=== PATIENT | male | born 1980 | race Caucasian/White ===

== ENCOUNTER 2017-02-13 09:39 | Inpatient (IN) | payer BC ==
[2017-02-13] MEDS ORDERED: Ondansetron HCl/PF 8 MG in Sodium Chloride 0.9% 50 ML IVPB PRN (10:23)
[2017-02-13] MEDS ORDERED: Dexamethasone 20 MG in Sodium Chloride 0.9% 50 ML IVPB SCH (10:30)
[2017-02-13] MEDS ORDERED: Famotidine/PF 20 mg/2ml Vial SLOW IVP SCH (10:30)
[2017-02-13] MEDS ORDERED: Acetaminophen 325 MG TAB PO SCH (10:30)
[2017-02-13] MEDS ORDERED: Palonosetron HCl 0.25 MG in Sodium Chloride 0.9% 50 ML IVPB SCH (10:30)
[2017-02-13] MEDS ORDERED: SODIUM CHLORIDE 0.9% IVPB SCH ×3 (11:00→11:30)
[2017-02-13] MEDS ORDERED: diphenhydrAMINE 50 MG in Sodium Chloride 0.9% 100 ML IVPB SCH (11:00)
[2017-02-13] MEDS ORDERED: RITUXIMAB IVPB SCH ×2 (11:00→11:15)
[2017-02-13] MEDS ORDERED: predniSONE 50 MG TAB PO SCH (11:30)
[2017-02-13] MEDS ORDERED: VINCRISTINE SULFATE IVPB SCH (11:30)
[2017-02-13] MEDS ORDERED: DOXORUBICIN IVPB SCH (11:30)
--- NOTE | 2017-02-13 13:13 | RAD ---
TWO VIEWS OF THE CHEST 02/13/2017 COMPARISON: 01/11/2009 HISTORY: Evaluate chest prior to chemotherapy treatment. FINDINGS: There is increased soft tissue density in the right paratracheal region, measuring up to 2.4 cm in t ransverse dimension. Question right paratracheal lymphadenopathy. There is increased density in th e right hilar region as well, which may signify underlying right hilar adenopathy. No pneumothorax o r pleural effusion. Mild elevation of right hemidiaphragm noted. No focal consolidation or alveola r edema. Soft tissue density noted in the left perihilar region and left paratracheal region, also concerning for adenopathy. IMPRESSION: Increased density in the hilar and paratracheal regions, suspicious for lymphadenopathy. No lobar c onsolidation or alveolar edema. This could be better assessed via chest CT. Code T. POS: [facility]
[2017-02-13] MEDS ORDERED: ALPRAZolam 0.25 MG TAB PO PRN (14:57)
--- NOTE | 2017-02-13 15:40 | HP ---
PRIMARY CARE PHYSICIAN: Dr. Isabella Mclean. CHIEF COMPLAINT: Large cell lymphoma. HISTORY OF PRESENT ILLNESS: The patient is a 36-year-old patient of Dr. Isabella Mclean. The patient has been admitted to begin a second round of chemotherapy for large cell lymphoma. [facility] and has been directly admitted by Dr. Mclean to continue therapy here. Patient denies any review of systems upon my interview. REVIEW OF SYSTEMS: The following complete review of systems was negative, unless otherwise mentioned in the HPI or belo w: Constitutional: Weight loss or gain, sense of well-being, ability to conduct usual activities, exer cise tolerance. Skin/Breast: Rash, itching, changes in hair growth or loss, nail changes, breast lumps, tenderness, swelling, nipple discharge. Eyes: Vision, double vision, tearing, blind spots, pain. ENT/Mouth: Headaches (location, time of onset, duration, precipitating factors), vertigo, lighthead edness, injury. Vision, double vision, tearing, blind spots, pain, nose bleeding, colds, obstruction , discharge, dental difficulties, gingival bleeding, dentures, neck stiffness, pain, tenderness, mas ses in thyroid or other areas. Cardiovascular: Precordial pain, substernal distress, palpitations, syncope, dyspnea on exertion, o rthopnea, nocturnal paroxysmal dyspnea, edema, cyanosis, hypertension, heart murmurs, varicosities, phlebitis, claudication. Respiratory: Pain, shortness of breath, wheezing, stridor, cough, hemoptysis, fever or night sweats Gastrointestinal: Poor appetite, dysphagia, indigestion, abdominal pain, heartburn, eructation, [place], vomiting, hematemesis, jaundice, constipation, or diarrhea, abnormal stools (althea-colored, nikkie y, bloody, greasy, foul smelling), flatulence, hemorrhoids, recent changes in bowel habits. Genitourinary: Urgency, frequency, dysuria, nocturia, hematuria, polyuria, oliguria, unusual (or ch tremaine in) color of urine, stones, hesitancy, change in size of stream, dribbling, acute retention or incontinence, libido, potency. Musculoskeletal: Pain, swelling, redness or heat of muscles or joints, limitation, of motion, muscu lar weakness, atrophy, cramps. Neurologic/Psychiatric: Convulsions, paralyses, tremor, incoordination, paresthesias, difficulties with memory of speech, sensory or motor disturbances, or muscular coordination (ataxia, tremor), emo tional problems, anxiety, depression, previous psychiatric care, unusual perceptions, hallucinations . Allergy/Immunologic: Skin rash, anemia, bleeding tendency, polydipsia, polyuria, intolerance to hea t or cold. PAST MEDICAL HISTORY: Large cell lymphoma, chronic sinusitis. PAST SURGICAL HISTORY: None. FAMILY HISTORY: Noncontributory. DRUG ALLERGIES: No known allergies. HOME MEDICATIONS: Flonase 2 sprays daily, Xanax 0.25 mg p.r.n., ipratropium bromide 2 sprays b.i.d. , Azelastine nasal spray 2 sprays daily as needed. PHYSICAL EXAMINATION: VITAL SIGNS: Temperature 98 4, pulse 101, respirations 16, satting 98% on room air, blood pressure 113/61. GENERAL: He is in no acute distress. HEENT: Normocephalic, atraumatic. EYES: PERRL. Extraocular muscles intact. No anicteric sclerae. LUNGS: Clear to auscultation. CARDIAC: No murmurs, regurgitation or gallops. ABDOMEN: Nontender, nondistended. Normoactive bowel sounds x4. EXTREMITIES: No clubbing, cyanosis or edema. NEUROLOGIC: Alert and oriented x3. Full range of motion of all extremities. LABORATORY DATA AND IMAGES: At this time, CBC and Chem-7 are pending. ASSESSMENT AND PLAN: 1. Large cell lymphoma. 2. Chronic sinusitis. PLAN: The patient is being admitted to the inpatient oncology unit. The Oncology services managing the patient's chemotherapeutic treatment. We are providing general medical management as needed. DISPOSITION: Per Oncology Service.
[2017-02-13] MEDS ORDERED: Heparin 1,000 UNITS/ML VIAL ONE (17:27)
[2017-02-13] MEDS ORDERED: hydrOXYzine 25 MG TAB PO PRN (17:51)
--- NOTE | 2017-02-13 20:49 | SPC ---
ULTRASOUND GUIDED RIGHT UPPER EXTREMITY PICC LINE PLACEMENT: Date: 02-13-17 History: Lymphoma. Patient needs chemotherapy treatment intravenously. Technique: After informed consent was obtained, the patient was placed on the intraoperative table in the supin e position. The right upper extremity was meticulously prepped and draped in the usual sterile fashi on. Skin and subcutaneous tissues at the intended puncture site were infiltrated with buffered 1% Li docaine for local anesthesia. The right basilic vein was accessed utilizing micropuncture technique and concurrent real-time ultrasound guidance. 5 Italian peel-away sheath was placed. The catheter was measured and cut to the appropriate length. The catheter was placed over the guidewire with the tip positioned overlying the distal SVC near the cavoatrial junction. Guidewire was advanced into the I VC confirming placement in the venous system. The guidewire and peel-away sheath were again removed. The catheter was accessed and aspirated easily. The catheter was secured to the skin utilizing sutur e and dry sterile dressing was placed. Patient tolerated the procedure well and without immediate complication. FINDINGS: Technically successful placement of a dual-lumen 5 Italian 38.5 cm PICC line via the right basilic ve in. Tip of the catheter overlies the distal SVC near the cavoatrial junction. Fluoroscopy: Total time is 0.4 minutes with total dose of 1411 mGy*cm\S\2. IMPRESSION: Technically successful ultrasound guided right upper extremity PICC line placement. POS: [facility]
[2017-02-13] MEDS ORDERED: FLU VACC QS2017-18 36 mo. & older 0.5 ML SYRINGE IM ONE (21:00)
[2017-02-14] MEDS: Ipratropium Bromide 0.03% Nasal Inhaler 30 ml Bottle EA NARE SCH ×3 (02:55→23:07)
[2017-02-14 04:55] LABS: Anion Gap 10 mmol/L (10-20); BUN (Urea Nitrogen) 16 mg/dL (8.9-20.6); Calc. Creatinine Clearance 134 mL/min (70-130); Calcium 8.3 mg/dL (7.8-10.44); Carbon Dioxide 22 mmol/L (22-29); Chloride 112 mmol/L (98-107); Estimated GFR-MDRD Greater than 90
[2017-02-14 05:00] LABS: #Lymphocytes 0.2 thou/uL (1.20-3.40); #Monocytes 0.1 thou/uL (0.11-0.59); #Neutrophils 6.7 thou/uL (1.40-6.50); %Basophils 0.6 % (0.0-1.0); %Eosinophils 0.4 % (0.0-10.0); %Monocytes 0.9 % (0.0-10.0); Hematocrit 30.2 % (42.0-52.0); White Blood Cell (WBC) Count 7.1 thou/uL (4.8-10.8)
--- NOTE | 2017-02-14 07:20 | PDOC.PN ---
- Subjective Encounter Start Date: 02/14/17 Encounter Start Time: 07:00 Subjective: mild itching at Picc site. no N/v - Objective MAR Reviewed: Yes Vital Signs & Weight: Vital Signs (12 hours) Temp Pulse Resp BP BP Pulse Ox 02/14/17 04:33 97.6 F 88 18 108/51 L 97 02/13/17 23:52 98.1 F 95 18 110/69 100 02/13/17 20:00 98.3 F 100 18 02/13/17 19:47 98.3 F 100 18 114/67 100 Weight Weight 149 lb Result Diagrams: 02/14/17 04:25 02/14/17 04:25 Phys Exam - Physical Examination Constitutional: NAD HEENT: PERRLA, moist MMs, sclera anicteric Neck: supple, full ROM Respiratory: no rhonchi, clear to auscultation bilateral Cardiovascular: RRR, no significant murmur Gastrointestinal: soft, non-tender Musculoskeletal: no edema Neurological: normal sensation, moves all 4 limbs Psychiatric: normal affect, A&O x 3 Skin: no rash Dx/Plan (1) Large cell lymphoma Code(s): C85.80 - OT TYPES OF NON-HODGKIN LYMPHOMA, UNSPECIFIED SITE Status: Chronic - Plan cont current plan of care continue chemotx per oncology * .
[2017-02-14] MEDS: predniSONE 50 MG TAB PO SCH (09:22)
[2017-02-14] MEDS: Azelastine 137 MCG/Spray 30 ML NS SCH (09:24)
[2017-02-14] MEDS: Fluticasone Propionate Nasal Spray 16 gm Bottle NASAL SCH (09:25)
[2017-02-14 11:10] VITALS: BMI 19.6
[2017-02-14] MEDS ORDERED: ETOPOSIDE IVPB SCH (14:30)
[2017-02-14] MEDS ORDERED: VINCRISTINE SULFATE IVPB SCH ×2 (14:30→18:30)
[2017-02-14] MEDS ORDERED: SODIUM CHLORIDE 0.9% IVPB SCH ×3 (14:30→18:30)
[2017-02-14] MEDS ORDERED: DOXORUBICIN IVPB SCH ×2 (14:30→18:30)
--- NOTE | 2017-02-14 15:51 | CON ---
DATE OF CONSULTATION: 02/14/2017 REASON FOR CONSULTATION: Diffuse large B cell lymphoma. HISTORY OF PRESENT ILLNESS: Mr. Curran is a pleasant 36-year-old gentleman who presented to the [facility] in early January for facial swelling and rash. Imaging revealed a large mass in the mediastinum with compression of the SVC. It was biopsied and confirmed diffuse large B cell lymphoma. He was transferred to [facility] for definitive care. He received cycle 1 of chemotherapy, then presented to our clinic on 01/30 to transfer care. He was admitted yesterday for cycle 2 of EPOCH-R chemotherapy. He denies any shortness of breath or chest pain. He admits to occasional cough and night sweats. No GI discomfort, discomfort or any bruising, bleeding or clotting. He has had over 20 pounds weight loss in the last 6 months. PAST MEDICAL HISTORY: Anxiety and depression. PAST SURGICAL HISTORY: Left hand repair for fracture. ALLERGIES: No known drug allergies. HOME MEDICATIONS: 1. Protonix 40 mg daily. 2. Bactrim DS 3 times a week. 3. Valacyclovir 500 mg daily. FAMILY HISTORY: Mother had breast cancer. SOCIAL HISTORY: , lives with his spouse. No alcohol, tobacco or illicit drug use. REVIEW OF SYSTEMS: Twelve-point review of systems negative except for noted in HPI. PHYSICAL EXAMINATION: VITAL SIGNS: Temperature is 97.5, pulse 95, respiratory rate 18, BP is 110/65. He is 100% on room air. GENERAL: A well-developed, well-nourished male in no acute distress. HEENT: Normocephalic and atraumatic. Pupils are equal and reactive to light. NECK: Supple. CARDIOVASCULAR: Regular rate and rhythm. LUNGS: Clear to auscultation. ABDOMEN: Soft and nontender. Bowel sounds are positive. EXTREMITIES: No clubbing, cyanosis or edema. SKIN: No rash. HEMATOLOGIC: No petechia or purpura. NEUROLOGIC: Nonfocal. PSYCHIATRIC: The patient is alert, oriented and appropriate. PERTINENT LABORATORY AND X-RAYS: Current WBC is 7.1, hemoglobin 10, hematocrit 30.2 and platelet count 327,000. He has 95% neutrophils, 3% lymphocytes. Sodium is 140, potassium is 3.9, chloride is 112, CO2 is 22, BUN is 16, creatinine is 0.73, glucose is 139 and calcium is 8.3. Chest x-ray showed hilar and paratracheal soft tissue mass. IMPRESSION: Diffuse large B cell lymphoma. DISCUSSION: The patient will have a 5-day course of chemotherapy of EPOCH-R. He will have a 20% increase in dose as his last ANC quinn was greater than 500 and he had no thrombocytopenia. We will monitor for nausea, vomiting, diarrhea , constipation and follow his hospital course closely. MTDD
[2017-02-14] MEDS ORDERED: Pegfilgrastim 6 MG/0.6 ML Delivery Kit SQ SCH (18:45)
[2017-02-15 06:12] LABS: #Lymphocytes 0.7 thou/uL (1.20-3.40); #Monocytes 1.3 thou/uL (0.11-0.59); #Neutrophils 9.8 thou/uL (1.40-6.50); %Basophils 0.2 % (0.0-1.0); %Eosinophils 0.2 % (0.0-10.0); %Lymphocytes 6.1 % (21.0-51.0); %Monocytes 10.8 % (0.0-10.0); Hematocrit 32.3 % (42.0-52.0); Mean Platelet Volume 7.5 fL (7.4-10.4); Red Blood Cell (RBC) Count 3.66 mill/uL (4.70-6.10); White Blood Cell (WBC) Count 11.8 thou/uL (4.8-10.8)
[2017-02-15 06:30] LABS: Anion Gap 12 mmol/L (10-20); BUN (Urea Nitrogen) 18 mg/dL (8.9-20.6); Calc. Creatinine Clearance 124 mL/min (70-130); Calcium 8.8 mg/dL (7.8-10.44); Carbon Dioxide 25 mmol/L (22-29); Chloride 108 mmol/L (98-107); Estimated GFR-MDRD Greater than 90
[2017-02-15] MEDS: predniSONE 50 MG TAB PO SCH (08:22)
[2017-02-15] MEDS: Fluticasone Propionate Nasal Spray 16 gm Bottle NASAL SCH (08:23)
[2017-02-15] MEDS: Azelastine 137 MCG/Spray 30 ML NS SCH (08:23)
[2017-02-15] MEDS: Ipratropium Bromide 0.03% Nasal Inhaler 30 ml Bottle EA NARE SCH ×2 (08:23→21:25)
[2017-02-15] MEDS ORDERED: SODIUM CHLORIDE 0.9% IVPB SCH ×6 (18:30)
[2017-02-15] MEDS ORDERED: VINCRISTINE SULFATE IVPB SCH ×6 (18:30)
[2017-02-15] MEDS ORDERED: DOXORUBICIN IVPB SCH ×6 (18:30)
[2017-02-15] MEDS: ETOPOSIDE IVPB SCH (22:58)
[2017-02-15] MEDS: SODIUM CHLORIDE 0.9% IVPB SCH (22:58)
[2017-02-16 05:41] LABS: #Basophils 0.1 thou/uL (0.0-0.2); #Lymphocytes 0.8 thou/uL (1.20-3.40); #Monocytes 0.9 thou/uL (0.11-0.59); #Neutrophils 5.5 thou/uL (1.40-6.50); %Basophils 0.8 % (0.0-1.0); %Eosinophils 0.6 % (0.0-10.0); %Lymphocytes 10.3 % (21.0-51.0); %Monocytes 12.4 % (0.0-10.0); Hematocrit 31.9 % (42.0-52.0); Mean Platelet Volume 7.4 fL (7.4-10.4); Red Blood Cell (RBC) Count 3.61 mill/uL (4.70-6.10); White Blood Cell (WBC) Count 7.3 thou/uL (4.8-10.8)
[2017-02-16 05:49] LABS: Anion Gap 12 mmol/L (10-20); BUN (Urea Nitrogen) 21 mg/dL (8.9-20.6); Calc. Creatinine Clearance 127 mL/min (70-130); Calcium 8.6 mg/dL (7.8-10.44); Carbon Dioxide 25 mmol/L (22-29); Chloride 106 mmol/L (98-107); Estimated GFR-MDRD Greater than 90
[2017-02-16] MEDS: predniSONE 50 MG TAB PO SCH (09:20)
[2017-02-16] MEDS: Azelastine 137 MCG/Spray 30 ML NS SCH (09:21)
[2017-02-16] MEDS: Ipratropium Bromide 0.03% Nasal Inhaler 30 ml Bottle EA NARE SCH ×2 (09:21→20:51)
[2017-02-16] MEDS: Fluticasone Propionate Nasal Spray 16 gm Bottle NASAL SCH (09:22)
--- NOTE | 2017-02-16 09:25 | PDOC.PN ---
- Subjective Encounter Start Date: 02/16/17 Encounter Start Time: 09:23 Patient seen at bedside. No overnight events, no new complaints - Objective MAR Reviewed: Yes Vital Signs & Weight: Vital Signs (12 hours) Temp Pulse Resp BP Pulse Ox 02/16/17 03:00 98.2 F 88 18 111/62 100 02/15/17 23:40 97.5 F L 85 18 105/57 L 100 Weight Admit Weight 149 lb Weight 149 lb I&O: 02/15/17 02/16/17 02/17/17 06:59 06:59 06:59 Intake Total 2136.2 2059 Output Total 950 Balance 1186.2 2059 Result Diagrams: 02/16/17 05:20 02/16/17 05:20 Phys Exam - Physical Examination Constitutional: NAD HEENT: moist MMs Neck: no JVD Respiratory: no rales Cardiovascular: RRR Gastrointestinal: non-tender Musculoskeletal: pulses present Neurological: moves all 4 limbs Psychiatric: A&O x 3 Dx/Plan (1) Large cell lymphoma Code(s): C85.80 - [facility] TYPES OF NON-HODGKIN LYMPHOMA, UNSPECIFIED SITE Status: Chronic - Plan cont current plan of care * Continue with EPOCH-R therapy- to complete tomorrow.
[2017-02-16] MEDS ORDERED: Ketorolac Tromethamine 30 MG/ML VIAL IVP SCH (10:00)
[2017-02-16] MEDS ORDERED: Ibuprofen 200 MG TAB PO PRN (14:00)
[2017-02-16] MEDS ORDERED: SODIUM CHLORIDE 0.9% IVPB SCH (21:30)
[2017-02-16] MEDS ORDERED: DOXORUBICIN IVPB SCH (21:30)
[2017-02-16] MEDS ORDERED: VINCRISTINE SULFATE IVPB SCH (21:30)
[2017-02-16] MEDS: SODIUM CHLORIDE 0.9% IVPB SCH (21:56)
[2017-02-16] MEDS: ETOPOSIDE IVPB SCH (21:56)
[2017-02-17 04:41] LABS: #Lymphocytes 0.6 thou/uL (1.20-3.40); #Monocytes 0.6 thou/uL (0.11-0.59); %Basophils 0.4 % (0.0-1.0); %Eosinophils 0.3 % (0.0-10.0); %Lymphocytes 7.7 % (21.0-51.0); %Monocytes 8.3 % (0.0-10.0); Mean Platelet Volume 7.6 fL (7.4-10.4); Red Blood Cell (RBC) Count 3.63 mill/uL (4.70-6.10); White Blood Cell (WBC) Count 7.2 thou/uL (4.8-10.8)
[2017-02-17 04:53] LABS: Anion Gap 10 mmol/L (10-20); BUN (Urea Nitrogen) 22 mg/dL (8.9-20.6); Calc. Creatinine Clearance 132 mL/min (70-130); Carbon Dioxide 26 mmol/L (22-29); Chloride 106 mmol/L (98-107); Estimated GFR-MDRD Greater than 90
[2017-02-17] MEDS: predniSONE 50 MG TAB PO SCH (08:30)
[2017-02-17] MEDS: Azelastine 137 MCG/Spray 30 ML NS SCH (09:31)
[2017-02-17] MEDS: Ipratropium Bromide 0.03% Nasal Inhaler 30 ml Bottle EA NARE SCH (09:31)
[2017-02-17] MEDS: Fluticasone Propionate Nasal Spray 16 gm Bottle NASAL SCH (09:31)
--- NOTE | 2017-02-17 11:57 | PDOC.PN ---
- Subjective Encounter Start Date: 02/17/17 Encounter Start Time: 09:00 Subjective: no sob, is getting chemo - Objective MAR Reviewed: Yes Vital Signs & Weight: Vital Signs (12 hours) Temp Pulse Resp BP Pulse Ox 02/17/17 11:25 98.1 F 68 18 108/59 L 98 02/17/17 08:00 97.9 F 78 20 02/17/17 07:32 97.9 F 78 20 112/58 L 99 02/17/17 04:00 97.8 F 77 16 107/53 L 97 02/17/17 00:00 98.2 F 91 16 113/57 L 99 Weight Admit Weight 149 lb Weight 149 lb I&O: 02/16/17 02/17/17 02/18/17 06:59 06:59 06:59 Intake Total 2059 2486 Balance 2059 2486 Result Diagrams: 02/17/17 03:45 02/17/17 03:45 Phys Exam - Physical Examination HEENT: PERRLA, moist MMs Neck: no JVD, full ROM Respiratory: no wheezing, no rales Cardiovascular: RRR, no significant murmur Gastrointestinal: soft, no distention, positive bowel sounds Musculoskeletal: no edema, pulses present Neurological: non-focal, moves all 4 limbs Psychiatric: A&O x 3 Dx/Plan (1) B-cell lymphoma Code(s): C85.10 - UNSPECIFIED B-CELL LYMPHOMA, UNSPECIFIED SITE Status: Acute Qualifiers: B-cell lymphoma type: diffuse large B-cell (2) Anxiety Code(s): F41.9 - ANXIETY DISORDER, UNSPECIFIED Status: Chronic - Plan is on EPOCH-R, neupogen -: may dc home later tonight after chemo per onc advice * . Review of Systems - Medications/Allergies Allergies/Adverse Reactions: Allergies Allergy/AdvReac Type Severity Reaction Status Date / Time No Known Allergies Allergy Verified 02/13/17 10:59 Medications: Current Medications Alprazolam (Xanax) 0.25 mg PO DAILYPRN PRN PRN Reason: Anxiety Azelastine HCl (Azelastine) 0 ml NS DAILY ERIC Last Admin: 02/17/17 09:31 Dose: 2 spr Fluticasone Propionate (Flonase Nasal [place]) 0 gm NASAL DAILY ERIC Last Admin: 02/17/17 09:31 Dose: 2 spr Hydroxyzine HCl (Atarax) 25 mg PO Q6H PRN PRN Reason: Itching Ondansetron HCl 8 mg/ Sodium (Chloride) 54 mls @ 216 mls/hr IVPB Q6H PRN PRN Reason: Nausea/Vomiting Palonosetron 0.25 mg/ Sodium (Chloride) 55 mls @ 165 mls/hr IVPB ONE [facility] Stop: 02/17/17 18:49 Cyclophosphamide 1,720 mg/ (Sodium Chloride) 586 mls @ 586 mls/hr IVPB 1800 [facility] Stop: 02/17/17 18:59 Doxorubicin HCl 24 mg/Vincristine Sulfate 0.8 mg/Sodium Chloride 100 mls @ 4.167 mls/hr IVPB ONE [facility] Stop: 02/17/17 21:29 Last Admin: 02/16/17 22:42 Dose: 100 mls Ibuprofen (Motrin) 400 mg PO Q6H PRN PRN Reason: Pain Ipratropium [place] (Atrovent 0.03%) 0 ml EA NARE BID [facility] Last Admin: 02/17/17 09:31 Dose: 2 spr Pegfilgrastim (Neulasta) 6 mg SQ ONE [facility] Stop: 02/17/17 18:46 Sodium Chloride (Flush - Normal Saline) 10 ml IVF Q12HR [facility] Last Admin: 02/17/17 09:33 Dose: 10 ml Sodium Chloride (Flush - Normal Saline) 10 ml IVF PRN PRN PRN Reason: Saline Flush Last Admin: 02/13/17 15:23 Dose: 10 ml
--- NOTE | 2017-02-17 17:10 | DIS ---
DATE OF ADMISSION: 02/13/2017 DATE OF DISCHARGE: 02/17/2017 DISCHARGE DISPOSITION: To home. PRIMARY DISCHARGE DIAGNOSES: Large B cell lymphoma on chemotherapy, anxiety disorder. PROCEDURES DONE DURING HOSPITALIZATION: The patient is on EPOCH-R chemotherapy , had a PICC line placed to right upper extremity. Discharge white count of 7, H\T\H were 10 and 32, platelet count 321 and 83% neutrophils, MCV was 88. Discharge BUN and creatinine were 22 and 0.7. DISCHARGE MEDICATION: Xanax p.r.n. ALLERGIES: No known drug allergies. INPATIENT CONSULTS: Dr. Mclean for Oncology. BRIEF COURSE DURING HOSPITALIZATION: The patient initially was sent from Dr. Mclean's office for EPOCH-R chemotherapy for large B cell lymphoma. He has had the first cycle of chemo done at [facility]. He was hospitalized for the same. He did not have any untoward events for chemo drugs. He has remained hemodynamically stable and will be discharged later tonight after his chemotherapy is completed per Oncology advice. He is otherwise hemodynamically stable. Please see a [id number] documentation on [facility] for the day of discharge. MTDD
[2017-02-17] MEDS ORDERED: SODIUM CHLORIDE 0.9% IVPB SCH (18:00)
[2017-02-17] MEDS ORDERED: CYCLOPHOSPHAMIDE IVPB SCH (18:00)
[2017-02-17] MEDS ORDERED: Palonosetron HCl 0.25 MG in Sodium Chloride 0.9% 50 ML IVPB SCH (18:30)
[2017-02-17 23:54] VITALS: BP 110/60; TEMP 98.2
== END 2017-02-18 01:10 | disposition home or self-care (01) | DRG 847 ==
LOC: ONC 09:58
PROVIDERS: ADMIT Internal Medicine Addiction Medicine; ATTEND Internal Medicine Addiction Medicine
PROC: 02HV33Z Insertion of Infusion Device into Superior Vena Cava, Percutaneous Approach (ICD-10-PCS; principal; 2017-02-13)
DX: Z51.11 Encounter for antineoplastic chemotherapy (principal); C83.32 Diffuse large B-cell lymphoma, intrathoracic lymph nodes; F41.9 Anxiety disorder, unspecified
CPT/HCPCS: 36569; 71020; 80048; 85025; 96377; A4216; C1751; J1100; J1200; J1642; J1644; J1885; J2469; J2505; J7050; J9070; J9181; J9310; J9370; Q2050; S0028

== ENCOUNTER → 2017-02-20 | Day surgery (SDC) | payer BC | LOC: ONC/OP 11:59 | PROVIDERS: ATTEND Internal Medicine Hematology & Oncology | DX: Z48.01 Encounter for change or removal of surgical wound dressing (principal); C83.32 Diffuse large B-cell lymphoma, intrathoracic lymph nodes; J32.9 Chronic sinusitis, unspecified; F41.9 Anxiety disorder, unspecified; Z79.51 Long term (current) use of inhaled steroids; Z79.899 Other long term (current) drug therapy | CPT/HCPCS: 99211; G0463 ==

== ENCOUNTER 2017-02-27 16:26 | Day surgery (SDC) | payer BC | END 2017-02-27 17:51 | disposition home or self-care (01) | LOC: ONC/OP 16:26 | PROVIDERS: ATTEND Internal Medicine Hematology & Oncology | DX: Z48.00 Encounter for change or removal of nonsurgical wound dressing (principal); C83.32 Diffuse large B-cell lymphoma, intrathoracic lymph nodes; J32.9 Chronic sinusitis, unspecified; F41.9 Anxiety disorder, unspecified; Z79.51 Long term (current) use of inhaled steroids; Z79.899 Other long term (current) drug therapy | CPT/HCPCS: 99211; G0463 ==

== ENCOUNTER 2017-03-06 09:50 | Inpatient (IN) | payer BC ==
[2017-03-06 10:09] VITALS: BMI 20.3
[2017-03-06] MEDS ORDERED: Famotidine/PF 20 mg/2ml Vial SLOW IVP SCH (10:45)
[2017-03-06] MEDS ORDERED: Acetaminophen 325 MG TAB PO SCH (10:45)
[2017-03-06] MEDS ORDERED: SODIUM CHLORIDE 0.9% IVPB SCH ×2 (10:45→11:00)
[2017-03-06] MEDS ORDERED: Dexamethasone 20 MG in Sodium Chloride 0.9% 50 ML IVPB SCH (10:45)
[2017-03-06] MEDS ORDERED: diphenhydrAMINE 50 MG in Sodium Chloride 0.9% 100 ML IVPB SCH (10:45)
[2017-03-06] MEDS ORDERED: RITUXIMAB IVPB SCH ×2 (10:45→11:00)
[2017-03-06] MEDS ORDERED: Pepto Bismol Chew TAB PO PRN (12:18)
[2017-03-06] MEDS ORDERED: Acetaminophen 325 MG TAB PO PRN (12:18)
[2017-03-06] MEDS ORDERED: Senokot 8.6 MG TAB PO PRN (12:18)
[2017-03-06] MEDS ORDERED: Guaifenesin DM 100-10/5 ML UDCUP PO PRN (12:18)
[2017-03-06] MEDS ORDERED: HYDROcodone/Acetaminophen 5/325 mg Tablet PO PRN (12:18)
[2017-03-06] MEDS ORDERED: ALPRAZolam 0.25 MG TAB PO PRN (12:21)
[2017-03-06] MEDS ORDERED: Ondansetron HCl/PF 4 MG/2 ML Vial IVP SCH (13:30)
[2017-03-06] MEDS ORDERED: Palonosetron HCl 0.25 MG, Admixture Fee 1 EACH in Sodium Chloride 0.9% 50 ML IVPB SCH (13:30)
--- NOTE | 2017-03-06 14:28 | HP ---
REASON FOR ADMISSION: Large B cell lymphoma for chemotherapy. HISTORY OF PRESENT ILLNESS: The patient was sent from Dr. Mclean's office for EPOCH-R chemotherapy for large B cell lymphoma. He has had two cycles of chemotherapy, one at [facility] and one here in the month of January/early part of this month. This is his third session. He has no complaints of chest pain, palpitations, PND or orthopnea. No complaints of fever. The patient has alopecia with generalized weakness after last 2 cycles of chemotherapy. No loss of appetite. He has had his blood work done this morning which shows almost normal counts on his CBC. PAST MEDICAL/SURGICAL HISTORY: Anxiety, depression, left hand repair for fracture and diffuse large B cell lymphoma. PERSONAL HISTORY: Does not abuse alcohol or drugs. No history of smoking. Lives with his . FAMILY HISTORY: Mother has had history of breast cancer. Father has diabetes. No known drug allergies. CURRENT MEDICATIONS: The patient is on Xanax p.r.n., Protonix 40 mg daily, ipratropium nasal spray, valacyclovir 500 mg p.o. daily and Bactrim double strength 1 tab daily for prophylaxis. REVIEW OF SYSTEMS: The following complete review of systems was negative, unless otherwise mentioned in the HPI or below: CONSTITUTIONAL: Weight loss or gain, ability to conduct usual activities. SKIN: Rash, itching. EYES: Double vision, pain. ENT/MOUTH: Nose bleeding, neck stiffness, pain, tenderness. CARDIOVASCULAR: Palpitations, dyspnea on exertion, orthopnea. RESPIRATORY: Shortness of breath, wheezing, cough, hemoptysis, fever or night sweats. GASTROINTESTINAL: Poor appetite, abdominal pain, heartburn, nausea, vomiting, constipation, or diarrhea. GENITOURINARY: Urgency, frequency, dysuria, nocturia. MUSCULOSKELETAL: Pain, swelling. NEUROLOGIC/PSYCHIATRIC: Anxiety, depression. ALLERGY/IMMUNOLOGIC: Skin rash, bleeding tendency. PHYSICAL EXAMINATION: GENERAL: The patient is a 36-year-old male who is currently not in any acute distress. VITAL SIGNS: Blood pressure 96/54, pulse 88 per minute, respiratory rate 20 per minute, temperature 97.7 degrees Fahrenheit, saturating 98% on room air. NECK: Supple, no elevated JVD. HEENT: Extraocular muscles intact. Pupils reacting to light. Oral cavity mucous membranes are moist. No exudates or congestion. CARDIOVASCULAR: S1, S2 heard. Regular rhythm. RESPIRATORY: Air entry 1+ bilateral. RESPIRATORY: 2+ bilateral. No rales or rhonchi. ABDOMEN: Soft, bowel sounds heard. No tenderness, rigidity or guarding. EXTREMITIES: No peripheral edema or calf tenderness. VASCULAR SYSTEM: Peripheral pulses 2+ bilateral, no ischemic ulcerations or gangrene. CENTRAL NERVOUS SYSTEM: No gross focal deficits seen. Patient is alert, awake , oriented well. PSYCHIATRIC: The patient's mood is euthymic. No hallucinations or delusions. LABORATORY DATA AND X-RAY FINDINGS: Electrolytes are stable. BUN 21, creatinine 1.0. Glucose 102. Liver enzymes are within normal limits. Albumin is 4.3. LDH 190, phosphorus is 4.3. LFTs are within normal limits. White count of 8, H&H 11 and 33, platelet count 297. CLINICAL IMPRESSION AND PLAN: The patient will be admitted to oncology floor for chemotherapy with Large B cell lymphoma. This will be his third cycle of chemotherapy. The patient will be on EPOCH-R chemotherapy. We will closely monitor him for any untoward events. He will also be getting Neupogen at the end of his chemotherapy cycle. Dr. Mclean, his oncologist, will be consulted as well. HARVEYD
[2017-03-06] MEDS: DOXORUBICIN IVPB SCH (18:40)
[2017-03-06] MEDS: SODIUM CHLORIDE 0.9% IVPB SCH (18:40)
[2017-03-06] MEDS: VINCRISTINE SULFATE IVPB SCH (18:40)
[2017-03-06] MEDS: Famotidine 20 MG TAB PO SCH (21:05)
[2017-03-06] MEDS: Ipratropium Bromide 0.03% Nasal Inhaler 30 ml Bottle EA NARE SCH ×2 (22:30→22:31)
[2017-03-07 04:55] LABS: #Lymphocytes 0.3 thou/uL (1.20-3.40); #Monocytes 0.2 thou/uL (0.11-0.59); #Neutrophils 6.7 thou/uL (1.40-6.50); %Lymphocytes 4.7 % (21.0-51.0); %Monocytes 2.1 % (0.0-10.0); Hematocrit 30.6 % (42.0-52.0); Mean Platelet Volume 7.9 fL (7.4-10.4); Red Blood Cell (RBC) Count 3.41 mill/uL (4.70-6.10); White Blood Cell (WBC) Count 7.2 thou/uL (4.8-10.8)
[2017-03-07 05:19] LABS: ALT (SGPT) 31 U/L (8-55); AST (SGOT) 19 U/L (5-34); Alkaline Phosphatase 83 U/L (40-150); Anion Gap 11 mmol/L (10-20); BUN (Urea Nitrogen) 19 mg/dL (8.9-20.6); Bilirubin, Total 0.3 mg/dL (0.2-1.2); Calc. Creatinine Clearance 97 mL/min (70-130); Calcium 9.1 mg/dL (7.8-10.44); Carbon Dioxide 24 mmol/L (22-29); Chloride 108 mmol/L (98-107); Estimated GFR-MDRD 84; Globulin 2.2 g/dL (2.4-3.5)
[2017-03-07] MEDS ORDERED: Bisacodyl 10 MG SUPP PR PRN (08:20)
--- NOTE | 2017-03-07 08:20 | PDOC.PN ---
- Subjective Encounter Start Date: 03/07/17 Encounter Start Time: 08:00 Subjective: has not passed stools from 3 days -: no sob - Objective Resuscitation Status: Resuscitation Status FULL:Full Resuscitation MAR Reviewed: Yes Vital Signs & Weight: Vital Signs (12 hours) Temp Pulse Resp BP Pulse Ox 03/07/17 04:39 97.4 F L 93 18 96/52 L 98 03/07/17 00:05 97.8 F 99 18 108/55 L 98 Weight Weight 149 lb I&O: 03/06/17 03/07/17 03/08/17 06:59 06:59 06:59 Intake Total 2620 Balance 2620 Result Diagrams: 03/07/17 04:35 03/07/17 04:35 Phys Exam - Physical Examination HEENT: PERRLA, moist MMs Neck: no JVD, supple Respiratory: no wheezing, no rales Cardiovascular: RRR, no significant murmur Gastrointestinal: soft, non-tender, positive bowel sounds Musculoskeletal: no edema, pulses present Neurological: non-focal, moves all 4 limbs Psychiatric: A&O x 3 Dx/Plan (1) Large cell lymphoma Code(s): C85.80 - OTH TYPES OF NON-HODGKIN LYMPHOMA, UNSPECIFIED SITE Status: Chronic (2) Chronic anemia Code(s): D64.9 - ANEMIA, UNSPECIFIED Status: Chronic (3) Anxiety Code(s): F41.9 - ANXIETY DISORDER, UNSPECIFIED Status: Chronic - Plan continue chemotherapy per onc advice -: colace bid -: cbc in am -: labs reviewed * . Review of Systems - Medications/Allergies Allergies/Adverse Reactions: Allergies Allergy/AdvReac Type Severity Reaction Status Date / Time No Known Allergies Allergy Verified 02/13/17 10:59 Medications: Current Medications Acetaminophen (Tylenol) 650 mg PO Q4H PRN PRN Reason: Headache/Fever or Pain Hydrocodone Bitart/Acetaminophen ([place] 5/325) 1 tab PO Q4H PRN PRN Reason: Moderate Pain (4-6) Alprazolam (Xanax) 0.25 mg PO DAILYPRN PRN PRN Reason: Anxiety Azelastine HCl (Azelastine) 0 ml NS QAM ERIC Bismuth Subsalicylate (Pepto Bismol) 2 tab PO Q1H PRN PRN Reason: Diarrhea/Loose Stools Famotidine (Pepcid) 20 mg PO BID [facility] Last Admin: 03/06/17 21:05 Dose: 20 mg Fluticasone Propionate (Flonase Nasal [place]) [facility] Guaifenesin/Dextromethorphan (Robitussin Dm) 15 ml PO Q4H PRN PRN Reason: Cough Etoposide 115 mg/ Sodium (Chloride) 505.75 mls @ 505.75 mls/hr IVPB 1700 [facility] Stop: 03/09/17 17:59 Last Admin: 03/06/17 17:16 Dose: 505.75 mls Doxorubicin HCl 24 mg/Vincristine Sulfate 0.8 mg/Sodium Chloride 100 mls @ 4.167 mls/hr IVPB 1800 [facility] Stop: 03/10/17 17:59 Last Admin: 03/06/17 18:40 Dose: 100 mls Palonosetron 0.25 mg/ Syringe 5 mls @ 600 mls/hr IVP [facility] Stop: 03/10/17 18:00 Cyclophosphamide 1.72 gm/ (Sodium Chloride) 586 mls @ 586 mls/hr IVPB [facility] Stop: 03/10/17 18:00 Ipratropium [place] (Atrovent 0.03%) 0 ml EA NARE BID [facility] Last Admin: 03/06/17 22:30 Dose: Not Given Ipratropium [place] (Atrovent 0.03%) 0 ml EA NARE BID [facility] Last Admin: 03/06/17 22:31 Dose: Not Given Ondansetron HCl (Zofran) 8 mg IVP Q6H PRN PRN Reason: Nausea/Vomiting Pegfilgrastim (Neulasta) 6 mg SQ [facility] Stop: 03/10/17 21:00 Pneumococcal Polyvalent Vaccine (Pneumovax 23) 0.5 ml IM .ONCE ONE Stop: 03/07/17 09:01 Prednisone (Prednisone) 100 mg PO QAM-WM [facility] Stop: 03/10/17 08:01 Senna (Senokot) 2 tab PO HSPRN PRN PRN Reason: Constipation Last Admin: 03/06/17 21:09 Dose: 2 tab Sodium Chloride (Flush - Normal Saline) 10 ml IVF Q12HR [facility] Last Admin: 03/06/17 21:05 Dose: 10 ml Sodium Chloride (Flush - Normal Saline) 10 ml IVF PRN PRN PRN Reason: Saline Flush Trimethoprim/Sulfamethoxazole (Bactrim Ds) 1 tab PO F ERIC Valacyclovir HCl (Valtrex) 500 mg PO DAILY ERIC
[2017-03-07] MEDS ORDERED: Sulfameth/Trimethoprim DS 800-160mg TAB PO SCH (09:00)
[2017-03-07] MEDS: Famotidine 20 MG TAB PO SCH ×2 (09:37→20:44)
[2017-03-07] MEDS: Docusate 100 MG CAP PO SCH ×2 (09:37→20:44)
[2017-03-07] MEDS: predniSONE 50 MG TAB PO SCH (09:37)
[2017-03-07] MEDS: Fluticasone Propionate Nasal Spray 16 gm Bottle NASAL SCH (09:38)
[2017-03-07] MEDS: Azelastine 137 MCG/Spray 30 ML NS SCH (09:39)
[2017-03-07] MEDS: Ipratropium Bromide 0.03% Nasal Inhaler 30 ml Bottle EA NARE SCH ×2 (09:39)
[2017-03-07] MEDS: Ondansetron HCl/PF 4 MG/2 ML Vial IVP PRN (16:12)
--- NOTE | 2017-03-07 18:17 | CON ---
DATE OF CONSULTATION: 03/07/2017 REASON FOR CONSULTATION: Diffuse large B cell lymphoma. HISTORY OF PRESENT ILLNESS: Mr. Curran is a pleasant 36-year-old gentleman who was diagnosed with d iffuse large B cell lymphoma in 01/2017. He was diagnosed at [facility] and [place] sferred to M.D. Paramjit for definitive care. There, he was started on EPOCH-R chemotherapy and rece ived his first cycle. He then transitioned his care to our clinic. He is being admitted for cycle 3 of EPOCH-R. He has done well with the past 2 cycles with mild neutropenia. He has had a rash since diagnosis and this has slowly improved. His chemotherapy regimen dosage has been increased this cyc le per protocol. Currently, he denies any complaints. No chest pain or shortness of breath. No karen sea, vomiting, or diarrhea. He has mild constipation but no other complaints. PAST MEDICAL HISTORY: 1. Diffuse large B cell lymphoma. 2. Anxiety and depression. PAST SURGICAL HISTORY: Repair fracture of the left hand. ALLERGIES: No known drug allergies. HOME MEDICATIONS: 1. Alprazolam 0.25 mg p.r.n. 2. Flonase nasal spray daily. 3. Protonix 40 mg daily. 4. Bactrim daily. 5. Valacyclovir 500 mg daily. FAMILY HISTORY: His mother had breast cancer. SOCIAL HISTORY: , lives with his spouse. No alcohol, tobacco or illicit drug use. REVIEW OF SYSTEMS: Twelve-point review of systems is negative except for noted in HPI. PHYSICAL EXAMINATION: VITAL SIGNS: Temperature is 98.0, pulse is 97, respiratory rate 20, BP is 117/71. He is 100% on ryan m air. GENERAL: Well-developed, well-nourished male in no acute distress. HEENT: Normocephalic, atraumatic. Pupils equal and reactive to light. He has alopecia. NECK: Supple. CARDIOVASCULAR: Regular rate and rhythm. LUNGS: Clear to auscultation. ABDOMEN: Soft, nontender, bowel sounds are positive. EXTREMITIES: There is no clubbing, cyanosis or edema. SKIN: No rash. HEMATOLOGIC: There is no petechia or purpura. NEUROLOGIC: Nonfocal. PSYCHIATRIC: The patient is alert and oriented and answers questions appropriately. PERTINENT LABORATORY AND X-RAYS: Current WBCs are 7.2, hemoglobin 10.1, hematocrit 30.6, platelet co unt is 261,000. He has got 93% neutrophils, 5% lymphocytes. Sodium is 138, potassium 4.7, chloride 108, CO2 is 24, BUN is 19, creatinine 1.01, calcium is 9.1, total bilirubin is 0.3, AST is 19, ALT is 31, alkaline phosphatase is 83. Serum total protein 6, albumin 3.8, and globulin 2.2. IMPRESSION: Diffuse large B-cell lymphoma. PLAN: The patient will receive 5-day chemotherapy regimen consisting of EPOCH-R. He will receive Ne ulasta Onpro kit at the completion of chemotherapy. We will follow his hospital course closely.
[2017-03-07] MEDS: SODIUM CHLORIDE 0.9% IVPB SCH (19:21)
[2017-03-07] MEDS: VINCRISTINE SULFATE IVPB SCH (19:21)
[2017-03-07] MEDS: DOXORUBICIN IVPB SCH (19:21)
[2017-03-08] MEDS: Ipratropium Bromide 0.03% Nasal Inhaler 30 ml Bottle EA NARE SCH ×6 (00:01→22:48)
[2017-03-08] MEDS: Famotidine 20 MG TAB PO SCH ×2 (10:39→22:02)
[2017-03-08] MEDS: Sulfameth/Trimethoprim DS 800-160mg TAB PO SCH (10:39)
[2017-03-08] MEDS: predniSONE 50 MG TAB PO SCH (10:39)
[2017-03-08] MEDS: Docusate 100 MG CAP PO SCH ×2 (10:39→22:05)
[2017-03-08] MEDS: Azelastine 137 MCG/Spray 30 ML NS SCH (10:40)
[2017-03-08] MEDS: Fluticasone Propionate Nasal Spray 16 gm Bottle NASAL SCH (10:41)
--- NOTE | 2017-03-08 12:02 | PDOC.PN ---
- Subjective Encounter Start Date: 03/08/17 Encounter Start Time: 12:01 Mr Curran was seen today in follow-up for B- cell Lymphoma. Patient does not have any complaints. He feels more regular regarding his bowels. - Objective Resuscitation Status: Resuscitation Status FULL:Full Resuscitation MAR Reviewed: Yes Vital Signs & Weight: Vital Signs (12 hours) Temp Pulse Resp BP Pulse Ox 03/08/17 08:00 97.5 F L 88 18 99 03/08/17 07:50 97.5 F L 88 18 105/68 99 03/08/17 03:49 97.4 F L 91 16 119/58 L 96 Weight Weight 149 lb I&O: 03/07/17 03/08/17 03/09/17 06:59 06:59 06:59 Intake Total 2620 1110 Balance 2620 1110 Result Diagrams: 03/07/17 04:35 03/07/17 04:35 Phys Exam - Physical Examination HEENT: PERRLA Respiratory: no wheezing, no rales, no rhonchi, clear to auscultation bilateral Cardiovascular: RRR, no significant murmur, no rub Gastrointestinal: soft, non-tender, positive bowel sounds Musculoskeletal: no edema Dx/Plan (1) B-cell lymphoma Code(s): C85.10 - UNSPECIFIED B-CELL LYMPHOMA, UNSPECIFIED SITE Status: Acute Qualifiers: B-cell lymphoma type: diffuse large B-cell (2) Constipation Code(s): K59.00 - CONSTIPATION, UNSPECIFIED Status: Acute - Plan * B- cell Lymphoma- Patient is tolerating Chemotherapy with EPOCH-R * Constipation- resolved * Continue Chemo , and Dispo as per Oncology.
[2017-03-08] MEDS: Ondansetron HCl/PF 4 MG/2 ML Vial IVP PRN (17:19)
[2017-03-08] MEDS: VINCRISTINE SULFATE IVPB SCH (19:52)
[2017-03-08] MEDS: SODIUM CHLORIDE 0.9% IVPB SCH (19:52)
[2017-03-08] MEDS: DOXORUBICIN IVPB SCH (19:52)
[2017-03-09] MEDS: Famotidine 20 MG TAB PO SCH (08:42)
[2017-03-09] MEDS: Docusate 100 MG CAP PO SCH (08:43)
[2017-03-09] MEDS: predniSONE 50 MG TAB PO SCH (08:46)
[2017-03-09] MEDS: Azelastine 137 MCG/Spray 30 ML NS SCH (10:49)
[2017-03-09] MEDS: Fluticasone Propionate Nasal Spray 16 gm Bottle NASAL SCH (10:51)
[2017-03-09] MEDS: Ipratropium Bromide 0.03% Nasal Inhaler 30 ml Bottle EA NARE SCH ×3 (10:51→21:05)
--- NOTE | 2017-03-09 12:33 | PDOC.PN ---
- Subjective Encounter Start Date: 03/09/17 Encounter Start Time: 12:29 Mr. Curran was seen today in follow-up for B-cell lymphoma treatment. He does not have any complaints today. - Objective Resuscitation Status: Resuscitation Status FULL:Full Resuscitation MAR Reviewed: Yes Vital Signs & Weight: Vital Signs (12 hours) Temp Pulse Resp BP BP Pulse Ox 03/09/17 08:20 97.8 F 70 18 100 03/09/17 07:30 97.8 F 70 18 118/65 100 03/09/17 03:45 98.0 F 92 16 105/62 98 Weight Weight 149 lb I&O: 03/08/17 03/09/17 03/10/17 06:59 06:59 06:59 Intake Total 1110 1610 Balance 1110 1610 Result Diagrams: 03/07/17 04:35 03/07/17 04:35 Phys Exam - Physical Examination HEENT: PERRLA Respiratory: no wheezing, no rales, no rhonchi, clear to auscultation bilateral Cardiovascular: RRR, no significant murmur Gastrointestinal: soft, non-tender, positive bowel sounds Musculoskeletal: no edema Dx/Plan (1) B-cell lymphoma Code(s): C85.10 - UNSPECIFIED B-CELL LYMPHOMA, UNSPECIFIED SITE Status: Acute Qualifiers: B-cell lymphoma type: diffuse large B-cell (2) Constipation Code(s): K59.00 - CONSTIPATION, UNSPECIFIED Status: Acute - Plan * B Cell Lymphoma- Patient is receiving EPOCH-R, and tolerating this well * Continue to monitor .
[2017-03-09] MEDS: Ondansetron HCl/PF 4 MG/2 ML Vial IVP PRN (17:33)
[2017-03-09] MEDS: DOXORUBICIN IVPB SCH (19:51)
[2017-03-09] MEDS: SODIUM CHLORIDE 0.9% IVPB SCH (19:51)
[2017-03-09] MEDS: VINCRISTINE SULFATE IVPB SCH (19:51)
[2017-03-10] MEDS: Docusate 100 MG CAP PO SCH ×2 (00:41→10:13)
[2017-03-10] MEDS: Famotidine 20 MG TAB PO SCH ×2 (00:41→10:13)
[2017-03-10] MEDS ORDERED: PALONOSETRON HCL IVP SCH (09:00)
[2017-03-10] MEDS ORDERED: CYCLOPHOSPHAMIDE IVPB SCH (09:00)
[2017-03-10] MEDS ORDERED: SODIUM CHLORIDE 0.9% IVPB SCH (09:00)
[2017-03-10] MEDS ORDERED: Pegfilgrastim 6 MG/0.6 ML Delivery Kit SQ SCH (09:00)
[2017-03-10] MEDS: Sulfameth/Trimethoprim DS 800-160mg TAB PO SCH (10:14)
[2017-03-10] MEDS: predniSONE 50 MG TAB PO SCH ×3 (10:24→15:58)
[2017-03-10] MEDS: Azelastine 137 MCG/Spray 30 ML NS SCH (10:28)
[2017-03-10] MEDS: Fluticasone Propionate Nasal Spray 16 gm Bottle NASAL SCH (10:28)
[2017-03-10] MEDS: Ipratropium Bromide 0.03% Nasal Inhaler 30 ml Bottle EA NARE SCH (10:28)
[2017-03-10 16:06] VITALS: BP 111/62; TEMP 97.7
--- NOTE | 2017-03-11 19:07 | DIS ---
PRIMARY CARE PHYSICIAN: He obtains through Dr. Darrius Nichole. DATE OF ADMISSION: 03/06/2017 DATE OF DISCHARGE: 03/10/2017 DISCHARGE DISPOSITION: Home. PRIMARY DISCHARGE DIAGNOSES: 1. Diffuse large B cell lymphoma. 2. Anxiety. 3. Depression. DISCHARGE MEDICATIONS: Include he is to continue now valacyclovir 500 mg daily, Bactrim double stren gth or DS 1 tablet daily, Protonix 40 mg daily, Atrovent nasal spray daily, Flonase nasal spray daily , Astelin nasal spray daily as needed, and alprazolam 0.5 mg q.6 hours as needed CODE STATUS: FULL CODE. ALLERGIES: No known drug allergies. HOSPITAL COURSE: Mr. Curran is a pleasant 36-year-old gentleman who was admitted for chemotherapy f or his large B cell lymphoma. He was to receive EPOCH-R. He underwent the scheduled 5 doses. He bauman d no significant adverse reactions and was subsequently discharged home to have close followup with Shira Mclean.
== END 2017-03-10 18:21 | disposition home or self-care (01) | DRG 847 ==
LOC: ONC 09:50
PROVIDERS: ADMIT Internal Medicine Hematology & Oncology; ATTEND Internal Medicine
DX: Z51.11 Encounter for antineoplastic chemotherapy (principal); C85.20 Mediastinal (thymic) large B-cell lymphoma, unspecified site; C83.32 Diffuse large B-cell lymphoma, intrathoracic lymph nodes; F32.9 Major depressive disorder, single episode, unspecified; F41.9 Anxiety disorder, unspecified; K59.00 Constipation, unspecified
CPT/HCPCS: 80053; 82248; 83615; 84100; 84550; 85025; 96377; A4216; J1100; J1200; J1642; J2405; J2469; J2505; J7050; J9070; J9181; J9310; J9370; Q2050; S0028

== ENCOUNTER 2017-03-14 16:11 | Day surgery (SDC) | payer BC | END 2017-03-14 16:53 | disposition home or self-care (01) | LOC: ONC/OP 16:11 | PROVIDERS: ATTEND Internal Medicine Hematology & Oncology | DX: Z48.01 Encounter for change or removal of surgical wound dressing (principal); C83.30 Diffuse large B-cell lymphoma, unspecified site; F41.9 Anxiety disorder, unspecified; F32.9 Major depressive disorder, single episode, unspecified; Z79.2 Long term (current) use of antibiotics; Z79.51 Long term (current) use of inhaled steroids; Z79.899 Other long term (current) drug therapy; Z95.828 Presence of other vascular implants and grafts; Z98.890 Other specified postprocedural states; Z87.81 Personal history of (healed) traumatic fracture; Z80.3 Family history of malignant neoplasm of breast | CPT/HCPCS: 99211; G0463 ==

== ENCOUNTER 2017-03-20 16:29 | Day surgery (SDC) | payer BC | END 2017-03-20 19:19 | disposition home or self-care (01) | LOC: ONC/OP 16:29 | PROVIDERS: ATTEND Internal Medicine Hematology & Oncology | DX: C83.32 Diffuse large B-cell lymphoma, intrathoracic lymph nodes (principal); F41.9 Anxiety disorder, unspecified; F32.9 Major depressive disorder, single episode, unspecified | CPT/HCPCS: 99211; G0463 ==

== ENCOUNTER 2017-03-27 09:39 | Inpatient (IN) | payer BC ==
[2017-03-27] MEDS ORDERED: Acetaminophen 325 MG TAB PO SCH (10:45)
[2017-03-27] MEDS ORDERED: diphenhydrAMINE 50 MG in Sodium Chloride 0.9% 100 ML IVPB SCH (10:45)
[2017-03-27] MEDS ORDERED: Famotidine/PF 20 mg/2ml Vial SLOW IVP SCH (10:45)
[2017-03-27] MEDS ORDERED: predniSONE 50 MG TAB PO SCH ×3 (11:00→18:00)
[2017-03-27] MEDS ORDERED: Sulfameth/Trimethoprim DS 800-160mg TAB PO SCH (11:00)
[2017-03-27] MEDS ORDERED: SODIUM CHLORIDE 0.9% IVPB SCH ×2 (11:00→18:00)
[2017-03-27] MEDS ORDERED: PALONOSETRON HCL IVP SCH (11:00)
[2017-03-27] MEDS ORDERED: RITUXIMAB IVPB SCH (11:00)
[2017-03-27] MEDS ORDERED: Ondansetron HCl/PF 8 MG in Sodium Chloride 0.9% 50 ML IVPB PRN (11:01)
[2017-03-27 13:05] VITALS: BMI 20.2
[2017-03-27] MEDS: Dexamethasone 20 MG in Sodium Chloride 0.9% 50 ML IVPB SCH ×2 (14:27→18:06)
[2017-03-27] MEDS ORDERED: ALPRAZolam 0.25 MG TAB PO PRN (15:40)
--- NOTE | 2017-03-27 15:44 | CT ---
CT ANGIO OF CHEST WITH CONTRAST: Multiple axial tomograms were obtained through the chest with arterial phase of enhancement and pulmo nary angio phase following angio protocol with multiplanar reconstruction and 3D post processing. HISTORY: Shortness of breath. Right-sided chest pain. There is a history of lymphoma. COMPARISON: No comparison studies. FINDINGS: Pulmonary arteries show adequate opacification. No evidence of pulmonary embolus. Thoracic aorta is opacified and is unremarkable with no evidence of dissection. The lung weber are clear. No infiltrate, effusion, or pneumothorax. There is a large soft tissue mass in the anterior mediastinum measuring 7-8 cm width x up to 6 cm AP dimension. This extends into the right suprahilar region. Anterior mediastinal adenopathy consisten t with the history of lymphoma is presumed. Images through the upper abdomen unremarkable. No evidence of axillary adenopathy. IMPRESSION: 1. No evidence of pulmonary embolus. 2. Large soft tissue mass in the anterior mediastinum consistent with confluent adenopathy given the history of lymphoma. Other anterior mediastinal masses such as thymic neoplasm cannot be excluded b y CT. POS: [facility]
[2017-03-27] MEDS ORDERED: Iopamidol 370 76% 100 ML VIAL ONE (17:19)
--- NOTE | 2017-03-27 17:37 | HP ---
PRIMARY CARE PHYSICIAN: Dr. Darrius Nichole. CHIEF COMPLAINT: Large B cell lymphoma. HISTORY OF PRESENT ILLNESS: Mr. Curran is a pleasant 37-year-old gentleman, who was seen at [facility] on 03/27/2017 after she was sent to the hospital as a direct admission fro m his oncologist's office. This is his fourth cycle of EPOCH-R chemotherapy for large B cell lymphoma. He reports that over the last couple of days, he has had some shortness of breath, mainly with exerti on as well as right-sided chest discomfort. He denies any fevers or chills. He denies any nausea or vomiting. He denies any abdominal pain. He denies any loss of appetite. REVIEW OF SYSTEMS: The following complete review of systems was negative, unless otherwise mentioned in the HPI or below: CONSTITUTIONAL: Weight loss or gain, sense of well-being, ability to conduct usual activities, exerc ise tolerance. SKIN/BREAST: Rash, itching, changes in hair growth or loss, nail changes, breast lumps, tenderness, swelling, nipple discharge. EYES: Vision, double vision, tearing, blind spots, pain. ENT/MOUTH: Headaches (location, time of onset, duration, precipitating factors), vertigo, lightheade dness, injury. Vision, double vision, tearing, blind spots, pain, nose bleeding, colds, obstruction, discharge, dental difficulties, gingival bleeding, dentures, neck stiffness, pain, tenderness, masses in thyroid or other areas. CARDIOVASCULAR: Precordial pain, substernal distress, palpitations, syncope, dyspnea on exertion, or thopnea, nocturnal paroxysmal dyspnea, edema, cyanosis, hypertension, heart murmurs, varicosities, ph lebitis, claudication. RESPIRATORY: Pain, shortness of breath, wheezing, stridor, cough, hemoptysis, fever or night sweats GASTROINTESTINAL: Poor appetite, dysphagia, indigestion, abdominal pain, heartburn, eructation, naus ea, vomiting, hematemesis, jaundice, constipation, or diarrhea, abnormal stools (althea-colored, tarry, bloody, greasy, foul smelling), flatulence, hemorrhoids, recent changes in bowel habits. GENITOURINARY: Urgency, frequency, dysuria, nocturia, hematuria, polyuria, oliguria, unusual (or guzman nge in) color of urine, stones, hesitancy, change in size of stream, dribbling, acute retention or in continence, libido, potency. MUSCULOSKELETAL: Pain, swelling, redness or heat of muscles or joints, limitation, of motion, muscul ar weakness, atrophy, cramps. NEUROLOGIC/PSYCHIATRIC: Convulsions, paralyses, tremor, incoordination, paresthesias, difficulties w ith memory of speech, sensory or motor disturbances, or muscular coordination (ataxia, tremor), emoti onal problems, anxiety, depression, previous psychiatric care, unusual perceptions, hallucinations. ALLERGY/IMMUNOLOGIC: Skin rash, anemia, bleeding tendency, polydipsia, polyuria, intolerance to heat or cold. PAST MEDICAL HISTORY: Significant for anxiety, depression and diffuse large B cell lymphoma. PAST SURGICAL HISTORY: Significant for left hand repair for fracture. SOCIAL HISTORY: No history of tobacco use, alcohol use or recreational drug use. FAMILY HISTORY: Breast cancer in his mother, diabetes in his father. ALLERGIES: No known drug allergies. CURRENT MEDICATIONS: Include alprazolam 0.25 mg as needed, azelastine nasal spray 1-2 sprays to each naris daily, Flonase 2 sprays to each naris daily, ipratropium nasal spray 2 sprays to each naris 2 times a day, Protonix 40 mg daily, sulfamethoxazole/trimethoprim double strength 1 tablet daily, vala cyclovir 500 mg daily. PHYSICAL EXAMINATION: GENERAL: Mr. Curran is awake and alert, not in acute distress. VITAL SIGNS: Blood pressure is 111/63, pulse is 105. He is breathing at rate of 18 and saturating 9 7% on room air. He is afebrile. EYES: No scleral icterus. No conjunctival pallor. ENT: Moist mucosal membranes, no oropharyngeal erythema or exudates. NECK: Supple, nontender, normal range of movement. Trachea is midline. RESPIRATORY: Accessory muscles of breathing are not active. Chest wall movements are symmetric bila terally. LUNGS: Clear to auscultation without wheeze, rhonchi or crepitations . CARDIOVASCULAR: S1 and S2 are heard, tachycardic and regular. Peripheral pulses palpable. No carot id bruit, no pericardial rub. ABDOMEN: Soft, nontender, bowel sounds heard, no hepatomegaly, no splenomegaly. NEUROLOGIC: Cranial nerves II-XII were intact. Deep tendon reflexes are 2+. SKIN: No rashes or subcutaneous nodules. MUSCULOSKELETAL: Power is 5/5 in all 4 extremities. Normal range of movement at all major extremity joints. PSYCHIATRIC: Normal mood, normal affect, patient is oriented to person, place, and time. LABORATORY DATA: Mr. Curran has not had any investigations at this time. ASSESSMENT AND PLAN: Mr. Curran is a pleasant 37-year-old gentleman who was seen at [facility]. His problem list includes: 1. Shortness of breath: Given his history of lymphoma and sinus tachycardia, patient is scheduled f or a CT angiogram to rule out pulmonary embolism. We will follow the result of this test. 2. Lymphoma: Patient will be started on chemotherapy per Oncology Service. 3. Anxiety and depression. We will continue home medications. Many thanks for allowing me to participate in Mr. Curran's care. Please feel free to contact me wit h any questions or concerns. LEVEL OF RISK: Moderate. LEVEL OF COMPLEXITY: Moderate.
[2017-03-27] MEDS ORDERED: DOXORUBICIN IVPB SCH (18:00)
[2017-03-27] MEDS ORDERED: VINCRISTINE SULFATE IVPB SCH (18:00)
[2017-03-27] MEDS: Ondansetron HCl/PF 4 MG/2 ML Vial SLOW IVP PRN (18:39)
[2017-03-28 05:03] LABS: #Lymphocytes 0.2 thou/uL (1.20-3.40); #Monocytes 0.1 thou/uL (0.11-0.59); #Neutrophils 7.8 thou/uL (1.40-6.50); %Basophils 0.2 % (0.0-1.0); %Lymphocytes 2.1 % (21.0-51.0); %Monocytes 0.9 % (0.0-10.0); Hematocrit 29.5 % (42.0-52.0); Mean Platelet Volume 8.1 fL (7.4-10.4); White Blood Cell (WBC) Count 8.1 thou/uL (4.8-10.8)
[2017-03-28 05:36] LABS: Anion Gap 10 mmol/L (10-20); BUN (Urea Nitrogen) 19 mg/dL (8.9-20.6); Calc. Creatinine Clearance 96 mL/min (70-130); Carbon Dioxide 24 mmol/L (22-29); Chloride 110 mmol/L (98-107); Estimated GFR-MDRD 81
[2017-03-28] MEDS: Azelastine 137 MCG/Spray 30 ML NS SCH (08:18)
[2017-03-28] MEDS: predniSONE 50 MG TAB PO SCH (08:18)
[2017-03-28] MEDS: Fluticasone Propionate Nasal Spray 16 gm Bottle NASAL SCH (08:19)
[2017-03-28] MEDS: Ipratropium Bromide 0.03% Nasal Inhaler 30 ml Bottle EA NARE SCH ×2 (08:21)
[2017-03-28] MEDS ORDERED: Sulfameth/Trimethoprim DS 800-160mg TAB PO SCH (09:00)
[2017-03-28] MEDS ORDERED: Docusate 100 MG CAP PO PRN (14:52)
--- NOTE | 2017-03-28 17:33 | PDOC.PN ---
- Subjective Encounter Start Date: 03/28/17 Encounter Start Time: 08:40 Pt seen for followup re: chest pain. Chest pain better. No fevers. Dyspnea better. - Objective MAR Reviewed: Yes Vital Signs & Weight: Vital Signs (12 hours) Temp Pulse Resp BP Pulse Ox 03/28/17 11:40 97.8 F 96 12 116/66 100 03/28/17 08:00 97.4 F L 86 12 97 03/28/17 07:30 97.4 F L 86 12 96/55 L 97 Weight Weight 153 lb I&O: 03/27/17 03/28/17 03/29/17 06:59 06:59 06:59 Intake Total 1180 Balance 1180 Result Diagrams: 03/28/17 04:45 03/28/17 04:45 Phys Exam - Physical Examination Constitutional: NAD HEENT: moist MMs Neck: supple Respiratory: clear to auscultation bilateral Cardiovascular: RRR Gastrointestinal: soft Musculoskeletal: pulses present Neurological: moves all 4 limbs Psychiatric: normal affect Skin: no rash Dx/Plan (1) Chest pain Code(s): R07.9 - CHEST PAIN, UNSPECIFIED Status: Acute (2) Anxiety Code(s): F41.9 - ANXIETY DISORDER, UNSPECIFIED Status: Chronic (3) Large cell lymphoma Code(s): C85.80 - OTH TYPES OF NON-HODGKIN LYMPHOMA, UNSPECIFIED SITE Status: Chronic - Plan * . Chest pain better. No PE on CTA. Pt receiving chemotherapy. Review of Systems - Review of Systems Respiratory: Shortness of Breath, SOB with Excertion. negative: Cough, Dry, Hemoptysis, Pleuritic Pain, Sputum, Wheezing Cardiovascular: Chest Pain. negative: Palpitations, Orthopnea, Paroxysmal Noc. Dyspnea, Edema, Light Headedness - Medications/Allergies Allergies/Adverse Reactions: Allergies Allergy/AdvReac Type Severity Reaction Status Date / Time No Known Allergies Allergy Verified 03/27/17 13:57 Medications: Current Medications Alprazolam (Xanax) 0.25 mg PO DAILYPRN PRN PRN Reason: Anxiety Azelastine HCl (Azelastine) 0 ml NS DAILY ERIC Last Admin: 03/28/17 08:18 Dose: 2 spr Docusate Sodium (Colace) 100 mg PO DAILYPRN PRN PRN Reason: Constipation Fluticasone Propionate (Flonase Nasal [place]) 0 gm NASAL DAILY [facility] Last Admin: 03/28/17 08:19 Dose: 2 spr Ondansetron HCl 8 mg/ Sodium (Chloride) 54 mls @ 200 mls/hr IVPB Q6H PRN PRN Reason: Nausea Stop: 04/01/17 11:02 Palonosetron 0.25 mg/ Syringe 5 mls @ 600 mls/hr IVP WILLCALL [facility] Stop: 03/31/17 09:01 Doxorubicin HCl 24 mg/Vincristine Sulfate 0.8 mg/Sodium Chloride 100 mls @ 4.167 mls/hr IVPB 1800 [facility] Stop: 03/30/17 18:30 Etoposide 115 mg/ Sodium (Chloride) 505.75 mls @ 505.75 mls/hr IVPB 1700 [facility] Stop: 03/30/17 17:59 Last Admin: 03/28/17 17:16 Dose: 505.75 mls Cyclophosphamide 1.72 gm/ (Sodium Chloride) 586 mls @ 586 mls/hr IVPB WILLCALL [facility] Stop: 03/31/17 16:00 Ipratropium [place] (Atrovent 0.03%) 0 ml EA NARE BID [facility] Last Admin: 03/28/17 08:21 Dose: 2 spr Ondansetron HCl (Zofran) 8 mg SLOW IVP Q6H PRN PRN Reason: Nausea/Vomiting Last Admin: 03/27/17 18:39 Dose: 8 mg Pantoprazole Sodium (Protonix) 40 mg PO DAILY [facility] Last Admin: 03/28/17 08:17 Dose: 40 mg Pegfilgrastim (Neulasta) 6 mg SQ WILLCALL [facility] Stop: 03/31/17 15:01 Prednisone (Prednisone) 100 mg PO DAILY [facility] Stop: 03/31/17 09:01 Last Admin: 03/28/17 08:18 Dose: 100 mg Trimethoprim/Sulfamethoxazole (Bactrim Ds) 1 tab PO MoWeFr@1200 [facility] Valacyclovir HCl (Valtrex) 500 mg PO DAILY [facility] Last Admin: 03/28/17 08:17 Dose: 500 mg
--- NOTE | 2017-03-28 20:16 | CON ---
DATE OF CONSULTATION: 03/28/2017 REASON FOR CONSULTATION: Diffuse large B cell lymphoma. HISTORY OF PRESENT ILLNESS: Mr. Curran is a 37-year-old gentleman who was diagnosed with diffuse la rge B cell lymphoma in 01/2017. He has been evaluated by MD Yusuf who has recommended chemotherap y with EPOCH-R. This is cycle 4, he is being admitted 4 at a day 5-day regimen. He had a recent PET scan, which showed approximately 50% reduction in tumor burden in his chest. He was seen yesterday in our clinic and complained of chest pain and shortness of breath. A CT angio was negative for pulm onary embolism. This has since improved dramatically. He is having a 20% increase in his dosage bas ed on his previous quinn of greater than 500 with no thrombocytopenia. PAST MEDICAL HISTORY: 1. Diffuse large B cell lymphoma. 2. Anxiety. PAST SURGICAL HISTORY: Fracture repair of the left hand. ALLERGIES: No known drug allergies. HOME MEDICATIONS: 1. Alprazolam 0.25 mg daily. 2. Azelastine daily. 3. Flonase daily. 4. Protonix 40 mg daily. 5. Bactrim 1 daily. 6. Valacyclovir 500 daily. FAMILY HISTORY: His mother had breast cancer. SOCIAL HISTORY: , lives with his spouse. No alcohol, tobacco or illicit drug use. REVIEW OF SYSTEMS: Ten-point review of systems is negative except for noted in HPI. PHYSICAL EXAMINATION: VITAL SIGNS: Temperature is 97.8, pulse is 96, respiratory rate 12, blood pressure is 116/66. He is 100% on room air. GENERAL: Well-developed, well-nourished male, in no acute distress. HEENT: Normocephalic, atraumatic. Pupils are equal and reactive to light. NECK: Supple. CARDIOVASCULAR: Regular rate and rhythm. LUNGS: Clear. ABDOMEN: Soft, nontender, bowel sounds are positive. EXTREMITIES: No clubbing, cyanosis or edema. SKIN: No rash. HEMATOLOGIC: No petechia or purpura. NEUROLOGIC: Nonfocal. PSYCHIATRIC: The patient is alert and oriented and appropriate. PERTINENT LABORATORY AND X-RAYS: Current WBCs are 8.1, hemoglobin 9.7, hematocrit 29.5, platelet cou nt is 229,000. Sodium is 140, potassium 4.2, chloride 110, CO2 is 24, BUN is 19, creatinine 1.03. C T angio of the chest per HPI. ASSESSMENT: Diffuse large B cell lymphoma. DISCUSSION: The patient will have a 5-day regimen of EPOCH-R chemotherapy. He will be sent home wit claude [place] Onpro kit to follow up in our clinic in the next week after treatment. I will add Colace to his medication regimen as he does have some constipation with treatment. He also will be treated with p.r.n. nausea medicine. Appreciate sound medical management. Thank you for the consult. We will follow his hospital course closely.
[2017-03-28] MEDS: DOXORUBICIN IVPB SCH (20:39)
[2017-03-28] MEDS: VINCRISTINE SULFATE IVPB SCH (20:39)
[2017-03-28] MEDS: SODIUM CHLORIDE 0.9% IVPB SCH (20:39)
[2017-03-29 04:33] LABS: #Lymphocytes 0.6 thou/uL (1.20-3.40); #Monocytes 1.3 thou/uL (0.11-0.59); #Neutrophils 6.9 thou/uL (1.40-6.50); %Basophils 0.4 % (0.0-1.0); %Eosinophils 0.3 % (0.0-10.0); %Lymphocytes 6.8 % (21.0-51.0); %Monocytes 14.6 % (0.0-10.0); Red Blood Cell (RBC) Count 3.02 mill/uL (4.70-6.10); White Blood Cell (WBC) Count 8.9 thou/uL (4.8-10.8)
[2017-03-29 04:58] LABS: Anion Gap 9 mmol/L (10-20); BUN (Urea Nitrogen) 21 mg/dL (8.9-20.6); Calc. Creatinine Clearance 103 mL/min (70-130); Carbon Dioxide 25 mmol/L (22-29); Chloride 109 mmol/L (98-107); Estimated GFR-MDRD 88
[2017-03-29] MEDS ORDERED: predniSONE 50 MG TAB PO SCH (12:00)
[2017-03-29] MEDS: Ondansetron HCl/PF 4 MG/2 ML Vial SLOW IVP PRN (12:53)
[2017-03-29] MEDS: predniSONE 50 MG TAB PO SCH (12:54)
[2017-03-29] MEDS: Sulfameth/Trimethoprim DS 800-160mg TAB PO SCH (12:54)
[2017-03-29] MEDS: Azelastine 137 MCG/Spray 30 ML NS SCH (12:55)
[2017-03-29] MEDS: Ipratropium Bromide 0.03% Nasal Inhaler 30 ml Bottle EA NARE SCH (12:55)
[2017-03-29] MEDS: Fluticasone Propionate Nasal Spray 16 gm Bottle NASAL SCH (12:55)
--- NOTE | 2017-03-29 13:14 | PDOC.PN ---
- Subjective Encounter Start Date: 03/29/17 Encounter Start Time: 13:10 Pt seen for followup re: lymphoma. No chest pain or shortness of breath. - Objective MAR Reviewed: Yes Vital Signs & Weight: Vital Signs (12 hours) Temp Pulse Resp BP Pulse Ox 03/29/17 12:00 97.5 F L 72 12 108/59 L 98 03/29/17 08:00 97.5 F L 76 12 98 03/29/17 07:45 97.5 F L 76 12 106/61 98 03/29/17 04:00 97.4 F L 76 16 111/55 L 98 Weight Weight 153 lb I&O: 03/28/17 03/29/17 03/30/17 06:59 06:59 06:59 Intake Total 1180 Balance 1180 Result Diagrams: 03/29/17 04:15 03/29/17 04:15 Phys Exam - Physical Examination Constitutional: NAD HEENT: moist MMs Neck: supple Respiratory: clear to auscultation bilateral Cardiovascular: RRR Gastrointestinal: soft Musculoskeletal: pulses present Neurological: moves all 4 limbs Psychiatric: normal affect Dx/Plan (1) Large cell lymphoma Code(s): C85.80 - OTH TYPES OF NON-HODGKIN LYMPHOMA, UNSPECIFIED SITE Status: Chronic (2) Anxiety Code(s): F41.9 - ANXIETY DISORDER, UNSPECIFIED Status: Chronic - Plan * . Receiving chemotherapy. Did not eat breakfast. Encouraged pt to have lunch. Will add Ensure. Review of Systems - Review of Systems Respiratory: negative: Cough, Dry, Shortness of Breath, Hemoptysis, SOB with Excertion, Pleuritic Pain, Sputum, Wheezing Cardiovascular: negative: Chest Pain, Palpitations, Orthopnea, Paroxysmal Noc. Dyspnea, Edema, Light Headedness - Medications/Allergies Allergies/Adverse Reactions: Allergies Allergy/AdvReac Type Severity Reaction Status Date / Time No Known Allergies Allergy Verified 03/27/17 13:57 Medications: Current Medications Alprazolam (Xanax) 0.25 mg PO DAILYPRN PRN PRN Reason: Anxiety Azelastine HCl (Azelastine) 0 ml NS DAILY ERIC Last Admin: 03/29/17 12:55 Dose: 2 spr Docusate Sodium (Colace) 100 mg PO DAILYPRN PRN PRN Reason: Constipation Fluticasone Propionate (Flonase Nasal [place]) 0 gm NASAL DAILY [facility] Last Admin: 03/29/17 12:55 Dose: 2 spr Ondansetron HCl 8 mg/ Sodium (Chloride) 54 mls @ 200 mls/hr IVPB Q6H PRN PRN Reason: Nausea Stop: 04/01/17 11:02 Palonosetron 0.25 mg/ Syringe 5 mls @ 600 mls/hr IVP WILLCALL [facility] Stop: 03/31/17 09:01 Doxorubicin HCl 24 mg/Vincristine Sulfate 0.8 mg/Sodium Chloride 100 mls @ 4.167 mls/hr IVPB 1800 [facility] Stop: 03/30/17 18:30 Last Admin: 03/28/17 20:39 Dose: 100 mls Etoposide 115 mg/ Sodium (Chloride) 505.75 mls @ 505.75 mls/hr IVPB 1700 [facility] Stop: 03/30/17 17:59 Last Admin: 03/28/17 17:16 Dose: 505.75 mls Cyclophosphamide 1.72 gm/ (Sodium Chloride) 586 mls @ 586 mls/hr IVPB WILLCALL [facility] Stop: 03/31/17 16:00 Ipratropium [place] (Atrovent 0.03%) 0 ml EA NARE BID [facility] Last Admin: 03/29/17 12:55 Dose: 2 spr Ondansetron HCl (Zofran) 8 mg SLOW IVP Q6H PRN PRN Reason: Nausea/Vomiting Last Admin: 03/29/17 12:53 Dose: 8 mg Pantoprazole Sodium (Protonix) 40 mg PO DAILY [facility] Last Admin: 03/29/17 12:54 Dose: 40 mg Pegfilgrastim (Neulasta) 6 mg SQ WILLCALL [facility] Stop: 03/31/17 15:01 Prednisone (Prednisone) 100 mg PO DAILY [facility] Stop: 03/31/17 09:01 Last Admin: 03/29/17 12:54 Dose: 100 mg Trimethoprim/Sulfamethoxazole (Bactrim Ds) 1 tab PO MoWeFr@1200 [facility] Last Admin: 03/29/17 12:54 Dose: 1 tab Valacyclovir HCl (Valtrex) 500 mg PO DAILY [facility] Last Admin: 03/29/17 12:54 Dose: 500 mg
[2017-03-29] MEDS: VINCRISTINE SULFATE IVPB SCH (20:23)
[2017-03-29] MEDS: SODIUM CHLORIDE 0.9% IVPB SCH (20:23)
[2017-03-29] MEDS: DOXORUBICIN IVPB SCH (20:23)
[2017-03-30 04:19] LABS: #Lymphocytes 0.3 thou/uL (1.20-3.40); #Monocytes 0.6 thou/uL (0.11-0.59); #Neutrophils 6.1 thou/uL (1.40-6.50); %Eosinophils 0.1 % (0.0-10.0); %Lymphocytes 4.3 % (21.0-51.0); %Monocytes 8.9 % (0.0-10.0); Hematocrit 29.2 % (42.0-52.0); Mean Platelet Volume 7.9 fL (7.4-10.4); Red Blood Cell (RBC) Count 3.19 mill/uL (4.70-6.10); White Blood Cell (WBC) Count 7.1 thou/uL (4.8-10.8)
[2017-03-30 04:34] LABS: Anion Gap 10 mmol/L (10-20); BUN (Urea Nitrogen) 24 mg/dL (8.9-20.6); Calc. Creatinine Clearance 106 mL/min (70-130); Calcium 8.9 mg/dL (7.8-10.44); Carbon Dioxide 26 mmol/L (22-29); Chloride 105 mmol/L (98-107); Estimated GFR-MDRD 90
[2017-03-30] MEDS: predniSONE 50 MG TAB PO SCH (10:00)
[2017-03-30] MEDS: Azelastine 137 MCG/Spray 30 ML NS SCH (10:00)
[2017-03-30] MEDS: Fluticasone Propionate Nasal Spray 16 gm Bottle NASAL SCH (10:01)
[2017-03-30] MEDS: Ipratropium Bromide 0.03% Nasal Inhaler 30 ml Bottle EA NARE SCH ×2 (10:03→10:05)
--- NOTE | 2017-03-30 16:24 | PDOC.PN ---
- Subjective Encounter Start Date: 03/30/17 Encounter Start Time: 16:22 Pt seen for followup re: lymphoma. No nausea today, eating well. No chest pain or shortness of breath. - Objective MAR Reviewed: Yes Vital Signs & Weight: Vital Signs (12 hours) Temp Pulse Resp BP Pulse Ox 03/30/17 15:41 97.9 F 82 16 102/55 L 99 03/30/17 11:21 97.9 F 88 12 102/57 L 98 03/30/17 07:40 97.5 F L 71 14 108/52 L 98 03/30/17 07:38 97.6 F 78 16 Weight Weight 153 lb Result Diagrams: 03/30/17 03:55 03/30/17 03:55 Phys Exam - Physical Examination Constitutional: NAD HEENT: moist MMs Neck: supple Respiratory: clear to auscultation bilateral Cardiovascular: RRR Gastrointestinal: soft, non-tender, positive bowel sounds Neurological: moves all 4 limbs Psychiatric: normal affect Dx/Plan (1) Large cell lymphoma Code(s): C85.80 - OTH TYPES OF NON-HODGKIN LYMPHOMA, UNSPECIFIED SITE Status: Chronic (2) Anxiety Code(s): F41.9 - ANXIETY DISORDER, UNSPECIFIED Status: Chronic - Plan * . Continue chemotherapy. Pt's appetite improved. Review of Systems - Review of Systems Respiratory: negative: Cough, Dry, Shortness of Breath, Hemoptysis, SOB with Excertion, Pleuritic Pain, Sputum, Wheezing Cardiovascular: negative: Chest Pain, Palpitations, Orthopnea, Paroxysmal Noc. Dyspnea, Edema, Light Headedness Gastrointestinal: negative: Nausea, Vomiting, Abdominal Pain, Diarrhea, Constipation, Melena, Hematochezia - Medications/Allergies Allergies/Adverse Reactions: Allergies Allergy/AdvReac Type Severity Reaction Status Date / Time No Known Allergies Allergy Verified 03/27/17 13:57 Medications: Current Medications Alprazolam (Xanax) 0.25 mg PO DAILYPRN PRN PRN Reason: Anxiety Azelastine HCl (Azelastine) 0 ml NS DAILY [facility] Last Admin: 03/30/17 10:00 Dose: 2 spr Docusate Sodium (Colace) 100 mg PO DAILYPRN PRN PRN Reason: Constipation Fluticasone Propionate (Flonase Nasal [place]) 0 gm NASAL DAILY [facility] Last Admin: 03/30/17 10:01 Dose: 2 spr Ondansetron HCl 8 mg/ Sodium (Chloride) 54 mls @ 200 mls/hr IVPB Q6H PRN PRN Reason: Nausea Stop: 04/01/17 11:02 Palonosetron 0.25 mg/ Syringe 5 mls @ 600 mls/hr IVP [facility] Stop: 03/31/17 09:01 Doxorubicin HCl 24 mg/Vincristine Sulfate 0.8 mg/Sodium Chloride 100 mls @ 4.167 mls/hr IVPB 1800 [facility] Stop: 03/30/17 18:30 Last Admin: 03/29/17 20:23 Dose: 100 mls Etoposide 115 mg/ Sodium (Chloride) 505.75 mls @ 505.75 mls/hr IVPB 1700 [facility] Stop: 03/30/17 17:59 Last Admin: 03/29/17 18:25 Dose: 505.75 mls Cyclophosphamide 1.72 gm/ (Sodium Chloride) 586 mls @ 586 mls/hr IVPB [facility] Stop: 03/31/17 16:00 Ipratropium [place] (Atrovent 0.03%) 0 ml EA NARE BID [facility] Last Admin: 03/30/17 10:05 Dose: Not Given Ondansetron HCl (Zofran) 8 mg SLOW IVP Q6H PRN PRN Reason: Nausea/Vomiting Last Admin: 03/29/17 12:53 Dose: 8 mg Pantoprazole Sodium (Protonix) 40 mg PO DAILY [facility] Last Admin: 03/30/17 09:59 Dose: 40 mg Pegfilgrastim (Neulasta) 6 mg SQ [facility] Stop: 03/31/17 15:01 Prednisone (Prednisone) 100 mg PO DAILY [facility] Stop: 03/31/17 09:01 Last Admin: 03/30/17 10:00 Dose: 100 mg Trimethoprim/Sulfamethoxazole (Bactrim Ds) 1 tab PO [id number]@1200 [facility] Last Admin: 03/29/17 12:54 Dose: 1 tab Valacyclovir HCl (Valtrex) 500 mg PO DAILY [facility] Last Admin: 03/30/17 10:00 Dose: 500 mg
[2017-03-30] MEDS: VINCRISTINE SULFATE IVPB SCH (21:00)
[2017-03-30] MEDS: DOXORUBICIN IVPB SCH (21:00)
[2017-03-30] MEDS: SODIUM CHLORIDE 0.9% IVPB SCH (21:00)
[2017-03-31 05:55] LABS: #Lymphocytes 0.6 thou/uL (1.20-3.40); #Monocytes 0.5 thou/uL (0.11-0.59); #Neutrophils 4.1 thou/uL (1.40-6.50); %Basophils 0.3 % (0.0-1.0); %Eosinophils 0.1 % (0.0-10.0); %Lymphocytes 11.7 % (21.0-51.0); %Monocytes 8.9 % (0.0-10.0); Hematocrit 28.8 % (42.0-52.0); Mean Platelet Volume 7.7 fL (7.4-10.4); Red Blood Cell (RBC) Count 3.16 mill/uL (4.70-6.10); White Blood Cell (WBC) Count 5.2 thou/uL (4.8-10.8)
[2017-03-31 06:02] LABS: Anion Gap 9 mmol/L (10-20); BUN (Urea Nitrogen) 25 mg/dL (8.9-20.6); Calc. Creatinine Clearance 103 mL/min (70-130); Carbon Dioxide 27 mmol/L (22-29); Chloride 106 mmol/L (98-107); Estimated GFR-MDRD 88
[2017-03-31] MEDS: Azelastine 137 MCG/Spray 30 ML NS SCH (08:13)
[2017-03-31] MEDS: Ipratropium Bromide 0.03% Nasal Inhaler 30 ml Bottle EA NARE SCH ×2 (08:13→11:32)
[2017-03-31] MEDS: Fluticasone Propionate Nasal Spray 16 gm Bottle NASAL SCH (08:13)
[2017-03-31] MEDS: predniSONE 50 MG TAB PO SCH (08:58)
[2017-03-31] MEDS ORDERED: Potassium Chloride 20 MEQ TAB PO SCH (09:00)
[2017-03-31] MEDS ORDERED: PALONOSETRON HCL IVP SCH (09:00)
--- NOTE | 2017-03-31 09:51 | DIS ---
PRIMARY CARE PHYSICIAN: Dr. Darrius Nichole DATE OF ADMISSION: 03/27/2017 DATE OF DISCHARGE: 03/31/2017 DISCHARGE DIAGNOSES: 1. Large B cell lymphoma. 2. Chemotherapy, cycle 4 of Epoch-R chemotherapy during this hospitalization. CONDITION OF PATIENT ON THE DAY OF DISCHARGE: Stable. I assessed Mr. Curran on the day of discharge. He denies any chest pain or shortness of breath. Vi dillan signs are stable. S1 and S2 are heard, regular. Lungs are clear to auscultation bilaterally. INVESTIGATIONS DURING THIS HOSPITALIZATION: CT angiogram of the chest on 03/27/2017, which did not r eveal any evidence of pulmonary embolus. He had a large soft tissue mass in the anterior mediastinum consistent with confluent adenopathy. HOSPITAL COURSE: Mr. Curran is a pleasant 37-year-old gentleman who was admitted to [facility] on 03/27/2017 for cycle 4 of Epoch-R chemotherapy for large B cell lymphoma. Onco logy Service followed this patient as well during this hospitalization. He will finish day 5 of the chemotherapy later today and will be discharged home. Many thanks for allowing me to participate in your patient's care. Please feel free to contact me wi th any questions or concerns. On the day of discharge, he has a sodium of 139, potassium 3.3, which is being replaced, creatinine 0 .96, blood urea nitrogen 25, white count 5200, hemoglobin 9.9, and platelet count 252,000. DISCHARGE DESTINATION: Home. TOTAL AMOUNT OF TIME SPENT COORDINATING THIS DISCHARGE: Twenty minutes.
[2017-03-31] MEDS ORDERED: PALONOSETRON HCL 0.05 MG/ML 5 ML VIAL IVP SCH (11:30)
[2017-03-31] MEDS: Sulfameth/Trimethoprim DS 800-160mg TAB PO SCH (11:31)
[2017-03-31] MEDS ORDERED: CYCLOPHOSPHAMIDE IVPB SCH (15:00)
[2017-03-31] MEDS ORDERED: Pegfilgrastim 6 MG/0.6 ML Delivery Kit SQ SCH (15:00)
[2017-03-31] MEDS ORDERED: SODIUM CHLORIDE 0.9% IVPB SCH (15:00)
[2017-03-31 21:17] VITALS: BP 110/62; TEMP 97.5
== END 2017-03-31 21:36 | disposition home or self-care (01) | DRG 847 ==
LOC: ONC 09:39
PROVIDERS: ADMIT Internal Medicine; ATTEND Internal Medicine
DX: Z51.11 Encounter for antineoplastic chemotherapy (principal); C83.30 Diffuse large B-cell lymphoma, unspecified site; F32.9 Major depressive disorder, single episode, unspecified; F41.9 Anxiety disorder, unspecified
CPT/HCPCS: 71275; 80048; 85025; 96377; J1100; J1200; J1642; J2405; J2469; J2505; J7050; J9070; J9181; J9310; J9370; Q2050; S0028

== ENCOUNTER 2017-04-03 16:31 | Day surgery (SDC) | payer BC | END 2017-04-03 18:20 | disposition home or self-care (01) | LOC: ONC/OP 16:31 | PROVIDERS: ATTEND Internal Medicine Hematology & Oncology | DX: Z45.2 Encounter for adjustment and management of vascular access device (principal); C83.32 Diffuse large B-cell lymphoma, intrathoracic lymph nodes | CPT/HCPCS: 99211; G0463 ==

== ENCOUNTER 2017-04-11 16:14 | Day surgery (SDC) | payer BC | END 2017-04-11 16:44 | disposition home or self-care (01) | LOC: ONC/OP 16:14 | PROVIDERS: ATTEND Internal Medicine Hematology & Oncology | DX: Z45.2 Encounter for adjustment and management of vascular access device (principal); C83.32 Diffuse large B-cell lymphoma, intrathoracic lymph nodes; F41.9 Anxiety disorder, unspecified; F32.9 Major depressive disorder, single episode, unspecified; Z79.899 Other long term (current) drug therapy; Z83.3 Family history of diabetes mellitus; Z80.3 Family history of malignant neoplasm of breast | CPT/HCPCS: 99211; G0463 ==

== ENCOUNTER 2017-04-18 08:57 | Inpatient (IN) | payer BC ==
[2017-04-18] MEDS ORDERED: Acetaminophen 325 MG TAB PO SCH (09:30)
[2017-04-18] MEDS ORDERED: RITUXIMAB IVPB SCH ×2 (09:30→10:45)
[2017-04-18] MEDS ORDERED: Famotidine/PF 20 mg/2ml Vial IVPB SCH ×2 (09:30→16:15)
[2017-04-18] MEDS ORDERED: diphenhydrAMINE 50 MG in Sodium Chloride 0.9% 50 ML IVPB SCH (09:30)
[2017-04-18] MEDS ORDERED: Dexamethasone 20 MG in Sodium Chloride 0.9% 50 ML IVPB SCH (09:30)
[2017-04-18] MEDS ORDERED: SODIUM CHLORIDE 0.9% IVPB SCH ×4 (09:30→11:30)
[2017-04-18] MEDS ORDERED: ETOPOSIDE IVPB SCH (09:45)
[2017-04-18] MEDS ORDERED: Sulfameth/Trimethoprim DS 800-160mg TAB PO SCH (09:45)
[2017-04-18] MEDS ORDERED: Ondansetron HCl/PF 4 MG/2 ML Vial SLOW IVP PRN (10:00)
[2017-04-18 11:18] LABS: Hemoglobin 9.9 g/dL (14.0-18.0); Mean Corpuscular HGB CONC 33.5 g/dL (32.0-36.0); Mean Corpuscular Hemoglobin 31.2 pg (27.0-31.0); Mean Corpuscular Volume 92.9 fl (80.0-94.0); Mean Platelet Volume 8.4 fL (7.4-10.4); Platelet Count 230 thou/uL (130-400); RBC Distribution Width 15.2 % (11.5-14.5); Red Blood Cell (RBC) Count 3.18 mill/uL (4.70-6.10); White Blood Cell (WBC) Count 4.6 thou/uL (4.8-10.8)
[2017-04-18 11:26] LABS: ALT (SGPT) 15 U/L (8-55); AST (SGOT) 13 U/L (5-34); Albumin 3.9 g/dL (3.5-5.0); Alkaline Phosphatase 75 U/L (40-150); Anion Gap 9 mmol/L (10-20); BUN (Urea Nitrogen) 20 mg/dL (8.9-20.6); Bilirubin, Total 0.2 mg/dL (0.2-1.2); Calc. Creatinine Clearance 98 mL/min (70-130); Calcium 9.5 mg/dL (7.8-10.44); Carbon Dioxide 28 mmol/L (22-29); Chloride 108 mmol/L (98-107); Estimated GFR-MDRD 83; Globulin 2.1 g/dL (2.4-3.5); Glucose 120 mg/dL (70-105); Potassium 3.5 mmol/L (3.5-5.1); Sodium 141 mmol/L (136-145)
[2017-04-18] MEDS ORDERED: DEXAMETHASONE IVPB SCH (11:30)
[2017-04-18 11:34] LABS: Band 10 % (5-11); Lymphocytes 9 % (21-51); MDiff Complete? YES; Monocytes 13 % (0-10); Myelocyte 1 % (0-0); Neutrophil 61 % (42-75); PLT Morphology Comment Appears Adequate; Polychromasia SLIGHT = 2-3 cells (100X) (0-2/hpf); Reactive Lymphocytes 6 % (0-10)
[2017-04-18] MEDS ORDERED: SODIUM CHLORIDE 0.9% IVP SCH (11:45)
[2017-04-18] MEDS ORDERED: DIPHENHYDRAMINE IVP SCH (11:45)
[2017-04-18] MEDS: predniSONE 50 MG TAB PO SCH (11:58)
[2017-04-18 13:18] VITALS: BMI 20.7
[2017-04-18] MEDS ORDERED: ALPRAZolam 0.25 MG TAB PO PRN (14:03)
--- NOTE | 2017-04-18 14:05 | HP ---
PRIMARY CARE PHYSICIAN: Darrius Nichole M.D. CHIEF COMPLAINT: Large B cell lymphoma. HISTORY OF PRESENT ILLNESS: Mr. Curran is a pleasant 37-year-old gentleman who was seen at [facility] on 04/18/2017. He was hospitalized at this facility in 03/2017 for fourth cycle of EPOCH-R chemotherapy for large B cell lymphoma. He was sent for admission for the next cycl e of EPOCH-R chemotherapy. REVIEW OF SYSTEMS: He denies any chest pain or shortness of breath. He denies any fevers or chills. He has no complaints. The following complete review of systems was negative, unless otherwise mentioned in the HPI or below : Constitutional: Weight loss or gain, sense of well-being, ability to conduct usual activities, ex ercise tolerance. Skin/Breast: Rash, itching, changes in hair growth or loss, nail changes, breast lumps, tenderness, swelling, nipple discharge. Eyes: Vision, double vision, tearing, blind spots, p ain. ENT/Mouth: Headaches (location, time of onset, duration, precipitating factors), vertigo, ligh theadedness, injury. Vision, double vision, tearing, blind spots, pain, nose bleeding, colds, obstru ction, discharge, dental difficulties, gingival bleeding, dentures, neck stiffness, pain, tenderness, masses in thyroid or other areas. Cardiovascular: Precordial pain, substernal distress, palpitatio ns, syncope, dyspnea on exertion, orthopnea, nocturnal paroxysmal dyspnea, edema, cyanosis, hypertens ion, heart murmurs, varicosities, phlebitis, claudication. Respiratory: Pain, shortness of breath, wheezing, stridor, cough, hemoptysis, fever or night sweats. Gastrointestinal: Poor appetite, dysph agia, indigestion, abdominal pain, heartburn, eructation, nausea, vomiting, hematemesis, jaundice, co nstipation, or diarrhea, abnormal stools (althea-colored, tarry, bloody, greasy, foul smelling), flatul ence, hemorrhoids, recent changes in bowel habits. Genitourinary: Urgency, frequency, dysuria, noct uria, hematuria, polyuria, oliguria, unusual (or change in) color of urine, stones, hesitancy, change in size of stream, dribbling, acute retention or incontinence, libido, potency. Musculoskeletal: P ain, swelling, redness or heat of muscles or joints, limitation, of motion, muscular weakness, atroph y, cramps. Neurologic/Psychiatric: Convulsions, paralyses, tremor, incoordination, paresthesias, di fficulties with memory of speech, sensory or motor disturbances, or muscular coordination (ataxia, tr emor), emotional problems, anxiety, depression, previous psychiatric care, unusual perceptions, hallu cinations. Allergy/Immunologic: Skin rash, anemia, bleeding tendency, polydipsia, polyuria, intoler ance to heat or cold. PAST MEDICAL HISTORY: Anxiety, depression and diffuse large B cell lymphoma. PAST SURGICAL HISTORY: Left hand repair for fracture. SOCIAL HISTORY: The patient denies tobacco use, alcohol use or recreational drug use. FAMILY HISTORY: Significant for diabetes mellitus in his father and breast cancer in his mother. ALLERGIES: No known drug allergies. CURRENT MEDICATIONS: This need to be clarified, but appear to include alprazolam, azelastine, flutic asone propionate, ipratropium bromide, Protonix, sulfamethoxazole/trimethoprim and valacyclovir. PHYSICAL EXAMINATION: GENERAL: Mr. Curran is awake and alert, not in acute distress. VITAL SIGNS: Stable. EYES: No scleral icterus. No conjunctival pallor. ENT: Moist mucosal membranes, no oropharyngeal erythema or exudates. NECK: Supple, nontender, normal range of movement. Trachea is midline. RESPIRATORY: Accessory muscles of breathing are not active. Chest wall movements are symmetric bila terally. LUNGS: Clear to auscultation without wheeze, rhonchi or crepitations. CARDIOVASCULAR: S1 and S2 are heard, regular. LUNGS: Peripheral pulses palpable. No carotid bruit, no pericardial rub. ABDOMEN: Soft, nontender, bowel sounds heard, no hepatomegaly, no splenomegaly. NEUROLOGIC: Cranial nerves II-XII are intact. Deep tendon reflexes are 2+. SKIN: No rashes or subcutaneous nodules. MUSCULOSKELETAL: Power is 5/5 in all 4 extremities. PSYCHIATRIC: Normal mood, normal affect, patient is oriented to person, place, and time. LABORATORY DATA: Mr. Curran has not had any labs done today. ASSESSMENT AND PLAN: Mr. Curran is a pleasant 37-year-old gentleman who was seen at [facility] on 04/18/2017. His problem list includes: 1. Large B cell lymphoma: Mr. Curran is being admitted to the hospital for chemotherapy. Oncology Service has already sent the orders for chemotherapy. This will be followed. 2. Anxiety and depression: Home medications will be continued once clarified. Many thanks for allowing me to participate in Mr. Curran's care. Please feel free to contact me wit h any questions or concerns. LEVEL OF RISK: Moderate. LEVEL OF COMPLEXITY: Moderate.
--- NOTE | 2017-04-18 14:32 | CON ---
DATE OF CONSULTATION: 04/18/2017 REASON FOR CONSULTATION: Diffuse large B cell lymphoma. HISTORY OF PRESENT ILLNESS: Mr. Curran is a pleasant 37-year-old gentleman well known to our servic e who is undergoing treatment for diffuse large B cell lymphoma. He received EPOCH-R chemotherapy in the inpatient setting. He presents today for admission for cycle 5, just 5-day regimen. He has astrid erated his prior cycles without any difficulty. He had rescanning after cycle 4. This was performed at [facility] ([facility] There was a marked decrease in size and extent of his mediastinal jasmyn mass. It n ow measures 7.2 x 4.7 x 12.3 where it is previously measured 12.5 x 10.5 x 18.5 cm. The patient joanna es any complaints at this time. PAST MEDICAL HISTORY: 1. Diffuse large B cell lymphoma. 2. Anxiety. PAST SURGICAL HISTORY: Fracture repair of his hand. ALLERGIES: No known drug allergies. HOME MEDICATIONS: 1. Alprazolam 0.25 mg daily. 2. Azelastine nasal spray daily. 3. Flonase daily. 4. Protonix 40 mg daily. 5. Bactrim DS Monday, Monday, and Monday. 6. Valacyclovir 500 mg daily. FAMILY HISTORY: His mother had breast cancer. SOCIAL HISTORY: , lives with his spouse. No alcohol, tobacco or illicit drug use. REVIEW OF SYSTEMS: Ten point review of systems is negative. PHYSICAL EXAMINATION: VITAL SIGNS: Temperature is 97.5, pulse is 90, respiratory rate 16, BP is 110/62, he is 98% on room air. GENERAL: Well-developed, well-nourished male in no acute distress. HEENT: Normocephalic, atraumatic. Pupils equal and react to light. He has alopecia. NECK: Supple. CARDIOVASCULAR: Regular rate and rhythm. LUNGS: Clear to auscultation. ABDOMEN: Soft, nontender, bowel sounds are positive. EXTREMITIES: No clubbing, cyanosis or edema. SKIN: No rash. HEMATOLOGIC: No petechia or purpura. NEUROLOGIC: Nonfocal. PSYCHIATRIC: The patient is alert and oriented and appropriate. PERTINENT LABORATORY DATA AND IMAGING DATA: Current WBCs are 4.6, hemoglobin 9.9, hematocrit 29.6, p latelet count 230,000, 61% neutrophils, 10% bands, 9% lymphocytes. Sodium 141, potassium 3.5, chlori de 108, CO2 is 28, BUN is 20, creatinine 1.01, calcium 9.5, total bilirubin is 0.2, AST 13, ALT 15, a lkaline phosphatase is 75. Serum total protein is 6, albumin 3.9, globulin 2.1. ASSESSMENT: Diffuse large B cell lymphoma. PLAN: A 5-day regimen of EPOCH-R chemotherapy. He will have Neulasta Onpro to get placed once chemo is completed. His home medications have been resumed as well as his prophylactic antibacterial and antiviral medication. I appreciate Sound management. Thank you for the consultation. We will follow his hospital course closely.
[2017-04-18] MEDS ORDERED: valACYclovir 500 MG TAB PO SCH (16:15)
[2017-04-18] MEDS: SODIUM CHLORIDE 0.9% IVPB SCH (17:19)
[2017-04-18] MEDS: DOXORUBICIN IVPB SCH (17:19)
[2017-04-18] MEDS: VINCRISTINE SULFATE IVPB SCH (17:19)
[2017-04-19 06:31] LABS: #Lymphocytes 0.2 thou/uL (1.20-3.40); #Monocytes 0.1 thou/uL (0.11-0.59); #Neutrophils 6.7 thou/uL (1.40-6.50); %Basophils 0.6 % (0.0-1.0); %Eosinophils 0.2 % (0.0-10.0); %Lymphocytes 2.2 % (21.0-51.0); %Monocytes 1.9 % (0.0-10.0); %Neutrophils 95.1 % (42.0-75.0); Hemoglobin 9.7 g/dL (14.0-18.0); Mean Corpuscular HGB CONC 33.5 g/dL (32.0-36.0); Mean Corpuscular Hemoglobin 31.3 pg (27.0-31.0); Mean Corpuscular Volume 93.6 fl (80.0-94.0); Mean Platelet Volume 8.2 fL (7.4-10.4); Platelet Count 263 thou/uL (130-400); RBC Distribution Width 15.2 % (11.5-14.5); Red Blood Cell (RBC) Count 3.08 mill/uL (4.70-6.10)
[2017-04-19 06:39] LABS: Anion Gap 11 mmol/L (10-20); BUN (Urea Nitrogen) 17 mg/dL (8.9-20.6); Calc. Creatinine Clearance 113 mL/min (70-130); Calcium 9.4 mg/dL (7.8-10.44); Carbon Dioxide 24 mmol/L (22-29); Chloride 110 mmol/L (98-107); Estimated GFR-MDRD Greater than 90; Glucose 128 mg/dL (70-105); Sodium 141 mmol/L (136-145)
[2017-04-19] MEDS: predniSONE 50 MG TAB PO SCH (10:16)
[2017-04-19] MEDS: valACYclovir 500 MG TAB PO SCH (10:17)
[2017-04-19] MEDS: Sulfameth/Trimethoprim DS 800-160mg TAB PO SCH (10:17)
[2017-04-19] MEDS ORDERED: SODIUM CHLORIDE 0.9% IVPB SCH (16:00)
[2017-04-19] MEDS ORDERED: ETOPOSIDE IVPB SCH (16:00)
[2017-04-19] MEDS: DOXORUBICIN IVPB SCH (16:36)
[2017-04-19] MEDS: VINCRISTINE SULFATE IVPB SCH (16:36)
[2017-04-19] MEDS: SODIUM CHLORIDE 0.9% IVPB SCH (16:36)
--- NOTE | 2017-04-19 18:29 | PDOC.PN ---
- Subjective Encounter Start Date: 04/19/17 Encounter Start Time: 10:00 Patient seen and examined. No new complaints. No overnight events - Objective MAR Reviewed: Yes Vital Signs & Weight: Vital Signs (12 hours) Temp Pulse Resp BP Pulse Ox 04/19/17 15:10 97.9 F 100 16 130/60 98 04/19/17 11:34 97.6 F 86 16 108/57 L 99 04/19/17 08:36 97.9 F 89 15 98 04/19/17 07:40 97.9 F 89 15 114/58 L 98 Weight Weight 153 lb 0.013 oz I&O: 04/18/17 04/19/17 04/20/17 06:59 06:59 06:59 Intake Total 2160 Balance 2160 Result Diagrams: 04/19/17 05:30 04/19/17 05:30 Phys Exam - Physical Examination Constitutional: NAD Respiratory: no wheezing, no rhonchi Cardiovascular: RRR, no rub Gastrointestinal: soft, non-tender, positive bowel sounds Musculoskeletal: no edema Neurological: moves all 4 limbs Dx/Plan - Plan DVT proph w/SCDs IMPRESSION: 1. Large B cell lymphoma 2. Anxiety & Depression 3. Chronic Anemia 4. GERD PLAN: * Chemo per Oncology * Resume PPI * Cont current meds as below * On Atbx prophylaxis Review of Systems - Review of Systems Respiratory: negative: Cough, Dry, Shortness of Breath, Hemoptysis, SOB with Excertion, Pleuritic Pain, Sputum, Wheezing Cardiovascular: negative: chest pain, palpitations, orthopnea, paroxysmal nocturnal dyspnea, edema, light headedness - Medications/Allergies Allergies/Adverse Reactions: Allergies Allergy/AdvReac Type Severity Reaction Status Date / Time No Known Allergies Allergy Verified 03/27/17 13:57 Medications: Current Medications Alprazolam (Xanax) 0.25 mg PO BIDPRN PRN PRN Reason: Anxiety Etoposide 100 mg/ Etoposide 15 (mg/ Sodium Chloride) 505.75 mls @ 505.75 mls/ hr IVPB [facility] Stop: 04/19/17 23:59 Last Admin: 04/19/17 15:28 Dose: 505.75 mls Etoposide 100 mg/ Etoposide 15 (mg/ Sodium Chloride) 505.75 mls @ 505.75 mls/ hr IVPB [facility] Stop: 04/20/17 23:59 Cyclophosphamide 1.72 gm/ (Sodium Chloride) 500 mls @ 500 mls/hr IVPB [facility] Stop: 04/22/17 16:00 Doxorubicin HCl 24 mg/Vincristine Sulfate 0.8 mg/Sodium Chloride 100 mls @ 4.167 mls/hr IVPB [facility] Stop: 04/21/17 23:59 Last Admin: 04/19/17 16:36 Dose: 100 mls Diphenhydramine HCl 50 mg/ (Sodium Chloride) 10 mls @ 30 mls/hr IVP [facility] Last Admin: 04/18/17 12:56 Dose: 10 mls Etoposide 100 mg/ Etoposide 15 (mg/ Sodium Chloride) 505.75 mls @ 505.75 mls/ hr IVPB [facility] Stop: 04/21/17 18:00 Ondansetron HCl (Zofran) 8 mg SLOW IVP Q6H PRN PRN Reason: Nausea/Vomiting Palonosetron (Alox[place]) 0.25 mg IVP [facility] Stop: 04/22/17 16:00 Pantoprazole Sodium (Protonix) 40 mg PO DAILY [facility] Pegfilgrastim (Neulasta) 6 mg SQ [facility] Stop: 04/22/17 23:59 Prednisone (Prednisone) 100 mg PO DAILY [facility] Stop: 04/22/17 09:01 Last Admin: 04/19/17 10:16 Dose: 100 mg Trimethoprim/Sulfamethoxazole (Bactrim Ds) 1 tab PO MWF [facility] Last Admin: 04/19/17 10:17 Dose: 1 tab Valacyclovir HCl (Valtrex) 500 mg PO DAILY [facility] Last Admin: 04/19/17 10:17 Dose: 500 mg
[2017-04-20 05:27] LABS: Anion Gap 11 mmol/L (10-20); BUN (Urea Nitrogen) 19 mg/dL (8.9-20.6); Calc. Creatinine Clearance 107 mL/min (70-130); Calcium 9.5 mg/dL (7.8-10.44); Carbon Dioxide 25 mmol/L (22-29); Chloride 108 mmol/L (98-107); Estimated GFR-MDRD Greater than 90; Glucose 128 mg/dL (70-105); Magnesium 2.2 mg/dL (1.6-2.6); Phosphorus 3.4 mg/dL (2.3-4.7); Potassium 3.9 mmol/L (3.5-5.1); Sodium 140 mmol/L (136-145)
[2017-04-20 05:37] LABS: Band 6 % (5-11); Hemoglobin 9.9 g/dL (14.0-18.0); Lymphocytes 3 % (21-51); MDiff Complete? YES; Mean Corpuscular HGB CONC 34.4 g/dL (32.0-36.0); Mean Corpuscular Hemoglobin 32.1 pg (27.0-31.0); Mean Corpuscular Volume 93.2 fl (80.0-94.0); Mean Platelet Volume 8.2 fL (7.4-10.4); Monocytes 9 % (0-10); Neutrophil 81 % (42-75); Platelet Count 251 thou/uL (130-400); RBC Distribution Width 15.3 % (11.5-14.5); Reactive Lymphocytes 1 % (0-10); Red Blood Cell (RBC) Count 3.09 mill/uL (4.70-6.10); White Blood Cell (WBC) Count 7.3 thou/uL (4.8-10.8)
[2017-04-20] MEDS: valACYclovir 500 MG TAB PO SCH (10:21)
[2017-04-20] MEDS: predniSONE 50 MG TAB PO SCH (10:22)
--- NOTE | 2017-04-20 12:10 | PDOC.PN ---
- Subjective Encounter Start Date: 04/20/17 Encounter Start Time: 11:30 Patient seen and examined. No new complaints. No overnight events - Objective Vital Signs & Weight: Vital Signs (12 hours) Temp Pulse Resp BP Pulse Ox 04/20/17 11:10 97.6 F 71 12 105/59 L 100 04/20/17 08:50 97.3 F L 73 12 98 04/20/17 07:10 97.3 F L 73 12 99/56 L 98 04/20/17 04:00 98.0 F 85 18 115/57 L 98 Weight Weight 153 lb 0.013 oz I&O: 04/19/17 04/20/17 04/21/17 06:59 06:59 06:59 Intake Total 2610 Balance 2610 Result Diagrams: 04/20/17 04:20 04/20/17 04:20 Phys Exam - Physical Examination Constitutional: NAD Neurological: moves all 4 limbs Psychiatric: normal affect, A&O x 3 Dx/Plan - Plan DVT proph w/SCDs IMPRESSION: 1. Large B cell lymphoma 2. Anxiety & Depression 3. Chronic Anemia 4. GERD PLAN: * on Chemo per Oncology * Cont current meds as below * Cont Atbx prophylaxis Review of Systems - Review of Systems Cardiovascular: negative: chest pain, palpitations, orthopnea, paroxysmal nocturnal dyspnea, edema, light headedness Gastrointestinal: negative: Nausea, Vomiting, Abdominal Pain, Diarrhea, Constipation, Melena, Hematochezia - Medications/Allergies Allergies/Adverse Reactions: Allergies Allergy/AdvReac Type Severity Reaction Status Date / Time No Known Allergies Allergy Verified 03/27/17 13:57 Medications: Current Medications Alprazolam (Xanax) 0.25 mg PO BIDPRN PRN PRN Reason: Anxiety Etoposide 100 mg/ Etoposide 15 (mg/ Sodium Chloride) 505.75 mls @ 505.75 mls/ hr IVPB [facility] Stop: 04/20/17 23:59 Cyclophosphamide 1.72 gm/ (Sodium Chloride) 500 mls @ 500 mls/hr IVPB [facility] Stop: 04/22/17 16:00 Doxorubicin HCl 24 mg/Vincristine Sulfate 0.8 mg/Sodium Chloride 100 mls @ 4.167 mls/hr IVPB [facility] Stop: 04/21/17 23:59 Last Admin: 04/19/17 16:36 Dose: 100 mls Diphenhydramine HCl 50 mg/ (Sodium Chloride) 10 mls @ 30 mls/hr IVP [facility] Last Admin: 04/18/17 12:56 Dose: 10 mls Etoposide 100 mg/ Etoposide 15 (mg/ Sodium Chloride) 505.75 mls @ 505.75 mls/ hr IVPB [facility] Stop: 04/21/17 18:00 Ondansetron HCl (Zofran) 8 mg SLOW IVP Q6H PRN PRN Reason: Nausea/Vomiting Last Admin: 04/19/17 19:22 Dose: 8 mg Palonosetron (Aloxi) 0.25 mg IVP [facility] Stop: 04/22/17 16:00 Pantoprazole Sodium (Protonix) 40 mg PO DAILY [facility] Last Admin: 04/20/17 10:21 Dose: 40 mg Pegfilgrastim (Neulasta) 6 mg SQ [facility] Stop: 04/22/17 23:59 Prednisone (Prednisone) 100 mg PO DAILY [facility] Stop: 04/22/17 09:01 Last Admin: 04/20/17 10:22 Dose: 100 mg Trimethoprim/Sulfamethoxazole (Bactrim Ds) 1 tab PO MWF [facility] Last Admin: 04/19/17 10:17 Dose: 1 tab Valacyclovir HCl (Valtrex) 500 mg PO DAILY [facility] Last Admin: 04/20/17 10:21 Dose: 500 mg
[2017-04-20] MEDS: VINCRISTINE SULFATE IVPB SCH (15:19)
[2017-04-20] MEDS: SODIUM CHLORIDE 0.9% IVPB SCH (15:19)
[2017-04-20] MEDS: DOXORUBICIN IVPB SCH (15:19)
[2017-04-20] MEDS ORDERED: SODIUM CHLORIDE 0.9% IVPB SCH (16:00)
[2017-04-20] MEDS ORDERED: ETOPOSIDE IVPB SCH (16:00)
[2017-04-21] MEDS ORDERED: ETOPOSIDE IVPB SCH (09:00)
[2017-04-21] MEDS ORDERED: SODIUM CHLORIDE 0.9% IVPB SCH (09:00)
[2017-04-21] MEDS: predniSONE 50 MG TAB PO SCH (10:49)
[2017-04-21] MEDS: Sulfameth/Trimethoprim DS 800-160mg TAB PO SCH (10:49)
[2017-04-21] MEDS: valACYclovir 500 MG TAB PO SCH (10:50)
[2017-04-21] MEDS: DOXORUBICIN IVPB SCH (15:37)
[2017-04-21] MEDS: VINCRISTINE SULFATE IVPB SCH (15:37)
[2017-04-21] MEDS: SODIUM CHLORIDE 0.9% IVPB SCH (15:37)
--- NOTE | 2017-04-21 18:47 | PDOC.PN ---
- Subjective Encounter Start Date: 04/21/17 Encounter Start Time: 18:46 No overnight events per RN. Tolerating Chemo. - Objective MAR Reviewed: Yes Vital Signs & Weight: Vital Signs (12 hours) Temp Pulse Resp BP BP Pulse Ox 04/21/17 15:25 98.0 F 89 12 113/59 L 99 04/21/17 11:15 97.8 F 64 12 113/61 99 04/21/17 08:30 98.0 F 68 12 98 04/21/17 07:05 98.0 F 68 12 120/67 98 Weight Weight 153 lb 0.013 oz I&O: 04/20/17 04/21/17 04/22/17 06:59 06:59 06:59 Intake Total 2610 1540 Balance 2610 1540 Result Diagrams: 04/20/17 04:20 04/20/17 04:20 Phys Exam - Physical Examination Constitutional: NAD Dx/Plan - Plan DVT proph w/SCDs IMPRESSION: 1. Large B cell lymphoma - on Chemo 2. Anxiety & Depression 3. Chronic Anemia 4. GERD PLAN: * Cont Chemo per Oncology * Cont current meds as below * Cont Atbx prophylaxis per Oncology * DC in AM after chemo Review of Systems - Medications/Allergies Allergies/Adverse Reactions: Allergies Allergy/AdvReac Type Severity Reaction Status Date / Time No Known Allergies Allergy Verified 03/27/17 13:57 Medications: Current Medications Alprazolam (Xanax) 0.25 mg PO BIDPRN PRN PRN Reason: Anxiety Cyclophosphamide 1.72 gm/ (Sodium Chloride) 500 mls @ 500 mls/hr IVPB [facility] Stop: 04/22/17 16:00 Doxorubicin HCl 24 mg/Vincristine Sulfate 0.8 mg/Sodium Chloride 100 mls @ 4.167 mls/hr IVPB [facility] Stop: 04/21/17 23:59 Last Admin: 04/21/17 15:37 Dose: 100 mls Diphenhydramine HCl 50 mg/ (Sodium Chloride) 10 mls @ 30 mls/hr IVP [facility] Last Admin: 04/18/17 12:56 Dose: 10 mls Ondansetron HCl (Zofran) 8 mg SLOW IVP Q6H PRN PRN Reason: Nausea/Vomiting Last Admin: 04/19/17 19:22 Dose: 8 mg Palonosetron (Aloxi) 0.25 mg IVP [facility] Stop: 04/22/17 16:00 Pantoprazole Sodium (Protonix) 40 mg PO DAILY [facility] Last Admin: 04/21/17 10:50 Dose: 40 mg Pegfilgrastim (Neulasta) 6 mg SQ [facility] Stop: 04/22/17 23:59 Prednisone (Prednisone) 100 mg PO DAILY [facility] Stop: 04/22/17 09:01 Last Admin: 04/21/17 10:49 Dose: 100 mg Trimethoprim/Sulfamethoxazole (Bactrim Ds) 1 tab PO MWF [facility] Last Admin: 04/21/17 10:49 Dose: 1 tab Valacyclovir HCl (Valtrex) 500 mg PO DAILY [facility] Last Admin: 04/21/17 10:50 Dose: 500 mg
[2017-04-22] MEDS ORDERED: PALONOSETRON HCL 0.05 MG/ML 5 ML VIAL IVP SCH (09:00)
[2017-04-22] MEDS ORDERED: SODIUM CHLORIDE 0.9% IVPB SCH (09:00)
[2017-04-22] MEDS ORDERED: Pegfilgrastim 6 MG/0.6 ML Delivery Kit SQ SCH ×2 (09:00)
[2017-04-22] MEDS ORDERED: CYCLOPHOSPHAMIDE IVPB SCH (09:00)
--- NOTE | 2017-04-22 16:07 | DIS ---
DATE OF DISCHARGE: 04/22/2017 DISCHARGE DISPOSITION: Home. FOLLOWUP: 1. Follow up with Dr. Dalal as scheduled. 2. Follow up with primary care physician Dr. Nichole in 1 week. The patient was seen on the day of discharge. Denies any new complaints, currently undergoing chemot herapy. BRIEF HOSPITAL COURSE: Patient is a 37-year-old male with large B cell lymphoma, currently on chemot herapy, was admitted on 04/18/2017 for chemotherapy. Please refer to the history and physical for fu rther details. The patient was admitted to the oncology unit for chemotherapy. He tolerated chemotherapy well. He will be discharged later today after completion of his chemotherapy. He appears stable for discharge . Plan of care was discussed with the patient. He stated understanding. DISCHARGE MEDICATIONS: 1. Xanax as needed. 2. Azelastine nasal spray daily. 3. Fluticasone 2 sprays in each nare daily. 4. Ipratropium 2 sprays in each nare b.i.d. 5. Protonix 40 mg daily. 6. Bactrim double strength 800/160 mg daily. 7. Valacyclovir 500 mg daily. FINAL DIAGNOSES: 1. Large B cell lymphoma, currently on chemotherapy. 2. Anxiety and depression. 3. Chronic anemia. 4. Gastroesophageal reflux disease.
[2017-04-22] MEDS: predniSONE 50 MG TAB PO SCH (18:21)
[2017-04-22] MEDS: valACYclovir 500 MG TAB PO SCH (18:21)
[2017-04-22 19:28] VITALS: BP 119/70; TEMP 98.2
== END 2017-04-22 22:55 | disposition home or self-care (01) | DRG 847 ==
LOC: ONC 08:57
PROVIDERS: ADMIT Internal Medicine Hematology & Oncology; ATTEND Internal Medicine Hematology & Oncology
DX: Z51.11 Encounter for antineoplastic chemotherapy (principal); C83.32 Diffuse large B-cell lymphoma, intrathoracic lymph nodes; F41.9 Anxiety disorder, unspecified; F32.9 Major depressive disorder, single episode, unspecified; D64.9 Anemia, unspecified; K21.9 Gastro-esophageal reflux disease without esophagitis
CPT/HCPCS: 80048; 80053; 83735; 84100; 85025; 96377; J1100; J1200; J1642; J2405; J2469; J2505; J7050; J9070; J9181; J9310; J9370; Q2050; S0028

== ENCOUNTER 2017-04-25 10:06 | Day surgery (SDC) | payer BC | END 2017-04-25 11:00 | disposition home or self-care (01) | LOC: ONC/OP 10:06 | PROVIDERS: ATTEND Internal Medicine Hematology & Oncology | DX: Z51.11 Encounter for antineoplastic chemotherapy (principal); C83.32 Diffuse large B-cell lymphoma, intrathoracic lymph nodes; F41.9 Anxiety disorder, unspecified; F32.9 Major depressive disorder, single episode, unspecified; Z79.2 Long term (current) use of antibiotics; Z79.51 Long term (current) use of inhaled steroids; Z79.899 Other long term (current) drug therapy; Z87.81 Personal history of (healed) traumatic fracture; Z80.3 Family history of malignant neoplasm of breast | CPT/HCPCS: 99211; G0463 ==

== ENCOUNTER → 2017-05-01 | Day surgery (SDC) | payer BC | LOC: ONC/OP 16:07 | PROVIDERS: ATTEND Internal Medicine Hematology & Oncology | DX: Z48.00 Encounter for change or removal of nonsurgical wound dressing (principal); C83.32 Diffuse large B-cell lymphoma, intrathoracic lymph nodes; F41.9 Anxiety disorder, unspecified; F32.9 Major depressive disorder, single episode, unspecified; Z79.2 Long term (current) use of antibiotics; Z79.51 Long term (current) use of inhaled steroids; Z79.899 Other long term (current) drug therapy; Z87.81 Personal history of (healed) traumatic fracture; Z80.3 Family history of malignant neoplasm of breast | CPT/HCPCS: 99211; G0463 ==

== ENCOUNTER 2017-05-08 09:53 | Inpatient (IN) | payer BC ==
[2017-05-08] MEDS ORDERED: Loratadine 10 MG TAB PO PRN (10:21)
[2017-05-08] MEDS ORDERED: Eucerin (Mineral Oil/Petrolatum,White) 30 gm Jar TOP PRN (10:21)
[2017-05-08] MEDS ORDERED: Zolpidem Tartrate 5 MG TAB PO PRN (10:21)
[2017-05-08] MEDS ORDERED: hydrALAZINE 20 MG/ML VIAL SLOW IVP PRN (10:21)
[2017-05-08] MEDS ORDERED: Sodium Chloride 0.65% Nasal 44 ML BOT EA NARE PRN (10:21)
[2017-05-08] MEDS ORDERED: Senokot 8.6 MG TAB PO PRN (10:21)
[2017-05-08] MEDS ORDERED: Ondansetron HCl/PF 4 MG/2 ML Vial IVP PRN (10:21)
[2017-05-08] MEDS ORDERED: Chloraseptic Spray 180 ml Bottle PO PRN (10:21)
[2017-05-08] MEDS ORDERED: Loperamide HCl 2 MG CAP PO PRN (10:21)
[2017-05-08] MEDS ORDERED: Mag-Al 1200 mg/1200 mg/30 ML UDCUP PO PRN (10:21)
[2017-05-08] MEDS ORDERED: HYDROcodone/Acetaminophen 5/325 mg Tablet PO PRN (10:21)
[2017-05-08] MEDS ORDERED: Ondansetron ODT 4 MG TAB PO PRN (10:21)
[2017-05-08] MEDS ORDERED: Diabetic Tussin 200 MG/10 ML UDCUP PO PRN (10:21)
[2017-05-08] MEDS ORDERED: Artificial Tears 18 DROP/0.9 ML EA EYE PRN (10:21)
[2017-05-08] MEDS ORDERED: Milk Of Magnesia 30 ML UDCUP PO PRN (10:21)
[2017-05-08] MEDS ORDERED: Acetaminophen 325 MG TAB PO PRN (10:21)
[2017-05-08] MEDS ORDERED: ALPRAZolam 0.25 MG TAB PO PRN (10:24)
[2017-05-08 11:08] LABS: Hemoglobin 9.6 g/dL (14.0-18.0); Mean Corpuscular HGB CONC 34.1 g/dL (32.0-36.0); Mean Corpuscular Volume 94.1 fl (80.0-94.0); Mean Platelet Volume 7.6 fL (7.4-10.4); Platelet Count 225 thou/uL (130-400); White Blood Cell (WBC) Count 8.3 thou/uL (4.8-10.8)
[2017-05-08] MEDS ORDERED: diphenhydrAMINE 50 MG in Sodium Chloride 0.9% 100 ML IVPB SCH (11:15)
[2017-05-08] MEDS ORDERED: Famotidine/PF 20 mg/2ml Vial SLOW IVP SCH (11:15)
[2017-05-08] MEDS ORDERED: SODIUM CHLORIDE 0.9% IVPB SCH (11:30)
[2017-05-08] MEDS ORDERED: Dexamethasone 20 MG in Sodium Chloride 0.9% 50 ML IVPB SCH (11:30)
[2017-05-08] MEDS ORDERED: RITUXIMAB IVPB SCH (11:30)
[2017-05-08 11:33] LABS: ALT (SGPT) 32 U/L (8-55); AST (SGOT) 22 U/L (5-34); Albumin 3.9 g/dL (3.5-5.0); Alkaline Phosphatase 69 U/L (40-150); Anion Gap 12 mmol/L (10-20); BUN (Urea Nitrogen) 22 mg/dL (8.9-20.6); Bilirubin, Total 0.2 mg/dL (0.2-1.2); Calc. Creatinine Clearance 95 mL/min (70-130); Calcium 9.1 mg/dL (7.8-10.44); Carbon Dioxide 25 mmol/L (22-29); Chloride 108 mmol/L (98-107); Estimated GFR-MDRD 77; Globulin 1.7 g/dL (2.4-3.5); Glucose 97 mg/dL (70-105); Potassium 3.7 mmol/L (3.5-5.1); Protein, Total 5.6 g/dL (6.0-8.3); Sodium 141 mmol/L (136-145)
[2017-05-08 11:34] LABS: Band 22 % (5-11); Eosinophils 3 % (0-10); Lymphocytes 11 % (21-51); Metamyelocyte 1 % (0-0); Monocytes 16 % (0-10); Myelocyte 10 % (0-0); Promyelocytes 2 % (0-0); Reactive Lymphocytes 3 % (0-10)
[2017-05-08 11:35] LABS: Differential Comment Blast-Like Cell(s)
[2017-05-08 11:36] LABS: Neutrophil 30 % (42-75)
[2017-05-08 11:37] LABS: Polychromasia MODERATE = 3-4 cells (100X) (0-2/hpf); Schistocytes SLIGHT = 2-5 cells (100X) (0-1/hpf); Tear Drops MODERATE= 6-15 cells (100X) (0-1/hpf)
[2017-05-08] MEDS ORDERED: valACYclovir 500 MG TAB PO SCH (12:30)
[2017-05-08] MEDS ORDERED: Sulfameth/Trimethoprim DS 800-160mg TAB PO SCH (12:30)
[2017-05-08] MEDS ORDERED: predniSONE 50 MG TAB PO SCH (13:00)
[2017-05-08 13:57] VITALS: BMI 20.4
--- NOTE | 2017-05-08 14:17 | HP ---
PRIMARY CARE PHYSICIAN: Darrius Nichole M.D. PRIMARY ONCOLOGIST: Isabella Mclean M.D. REASON FOR ADMISSION: Chemotherapy for B-cell lymphoma. HISTORY OF PRESENT ILLNESS: A 37-year-old white male who has a history of diffuse large B-cell lymph alejandro. He is receiving chemotherapy. [facility] and after that he had another five cycles of chemotherapy in our hospital. The patient is readmitted for his 6th cy taylor of chemotherapy. The patient is going to receive 5 days chemotherapy regimen, which is ordered b y Oncology. The patient reports that after each cycle of chemotherapy, he feels taste bud change for a few days. He feels nausea while on chemotherapy, but that gets better after chemotherapy. He den ies any sore mouth. He denies any nausea, vomiting, chest pain, shortness of breath, cough, or flu-l doni illness. He denies any fever or chills. He denies any UTI symptoms. This patient has tolerated chemotherapy in the past very well without any problem. The patient has d ecrease in size of mediastinal jasmyn mass after chemotherapy. PAST MEDICAL HISTORY: Diffuse large B-cell lymphoma, allergic rhinitis, gastroesophageal reflux dise ase. PAST PSYCHIATRIC HISTORY: Anxiety disorder. PAST SURGICAL HISTORY: Fracture repair of his hand. CURRENT HOME MEDICATIONS: Xanax 0.25 mg as directed p.r.n., azelastine nasal spray daily, Flonase na bridget spray daily, Atrovent nasal spray b.i.d., Protonix 40 mg p.o. daily, Bactrim 1 tablet p.o. daily , valacyclovir 500 mg p.o. daily. ALLERGIES: No known drug allergies. FAMILY HISTORY: The patient's mother had breast cancer. No strong family history of premature coron kika artery disease or stroke. SOCIAL HISTORY: The patient is , lives with his spouse. No history of tobacco, alcohol or il licit drug abuse. Positive for diabetes mellitus to his father. REVIEW OF SYSTEMS: Please see my HPI for pertinent positives and negatives. All other review of sys tems reviewed and negative except as mentioned in the HPI: Constitutional: Weight loss or gain, ability to conduct usual activities. Skin: Rash, itching. Eyes: Double vision, pain. ENT/Mouth: Nose bleeding, neck stiffness, pain, tenderness. Cardiovascular: Palpitations, dyspnea on exertion, orthopnea. Respiratory: Shortness of breath, wheezing, cough, hemoptysis, fever or night sweats. Gastrointestinal: Poor appetite, abdominal pain, heartburn, nausea, vomiting, constipation, or diarrhea. Genitourinary: Urgency, frequency, dysuria, nocturia. Musculoskeletal: Pain, swelling. Neurologic/Psychiatric: Anxiety, depression. Allergy/Immunologic: Skin rash, bleeding tendency. HOSPITAL COURSE: Reviewed. PHYSICAL EXAMINATION: VITAL SIGNS: Currently, temperature 97.8, pulse 100, respiratory rate 14, saturation 100%, blood pre ssure 112/66, weight 158 pounds. GENERAL: The patient is currently alert, awake, no obvious acute distress. HEAD: Alopecia. Normocephalic and atraumatic. EYES: Pupils round, reactive to light. Extraocular muscle intact. ENT: Oropharynx within normal limits. Moist mucous membranes. No oral lesion. No pharyngeal eryth iron. No exudates. NECK: Supple, no JVD, no thyromegaly, no carotid bruit, no jugular venous distention. LUNGS: Clear to auscultation without any rhonchi or rales. CARDIAC: S1, S2 regular. No murmur, tachycardia, no gallop, no rub. ABDOMEN: Soft, bowel sounds present, nontender, nondistended. No organomegaly. No mass. No suprap ubic tenderness. BACK: Unremarkable. No CVA tenderness. EXTREMITIES: Upper extremity passive movements of all joints are normal. Lower extremities: No meliton ma. Good peripheral pulsation. SKIN: No skin rash. HEMATOLOGICAL: No lymphadenopathy. PSYCHIATRIC: Normal affect. NEUROLOGIC: Nonfocal examination. SIGNIFICANT LABORATORY DATA: 1. CBC: WBC 8.3, hemoglobin 9.6, MCV 94.1, platelet 225 with bandemia. BMP: Sodium 141, potassium 3.7, chloride 108, carbon dioxide 25, anion gap 12, BUN 22, creatinine 1.08, glucose 97, calcium 9.1 . 2. LFT: AST 22, ALT 32, alkaline phosphatase 69, albumin 3.9. Old records reviewed from our hospital. ASSESSMENT AND PLAN: 1. Diffuse large B-cell lymphoma, on chemotherapy. So far, the patient has finished 5 cycles of wolfgang motherapy without any significant problem and the patient is readmitted for his 6th cycle of chemothe rapy. The patient will get doxorubicin infusion, vincristine, etoposide and prednisone today and lorena orrow. This patient will continue this chemotherapy until 05/11/2017 and on 05/12/2017, he will get Aloxi, Cytoxan, and prednisone, and on 05/13/2017, the patient will get Neulasta and subsequently akanksha hall consider discharging him home. While on chemotherapy, we will treat his symptoms. We will hydrate him with IV fluid. We will provide supportive care. 2. Allergic rhinitis. I will continue azelastine nasal spray, Flonase nasal spray, Atrovent nasal s pray while in hospital. 3. Gastroesophageal reflux disease. We will continue Protonix 40 mg p.o. daily. 4. Anxiety disorder. We will continue alprazolam 0.25 mg p.o. daily as directed. 5. Prophylactic treatment while on chemotherapy. We will continue Bactrim-DS and valacyclovir on a daily basis. 6. Anemia of chronic disease. 7. Deep venous thrombosis prophylaxis. The patient is low risk for deep venous thrombosis and seque ntial compression device boots while in bed. 8. Gastrointestinal prophylaxis, Protonix 40 mg p.o. daily. CODE STATUS: The patient is FULL CODE. The patient is making decision by himself. Disposition plan based on clinical course. The patient will stay in hospital for 5 more days. Plan of care discussed with the patient in detail.
[2017-05-08 19:02] LABS: Bilirubin Negative (Negative); Blood, Urine Negative (Negative); Clarity CLEAR (Clear); Glucose, Urine (Dipstick) Negative (Negative); Leukocyte Negative (Negative); Nitrite Negative (Negative); Protein, Urine (Dipstick) Negative (Neg-Trace); Specific Gravity, Urine 1.011 (1.002-1.036); Urobilinogen 0.2 mg/dL (0.2-1.0); pH, Urine 6.5 (5.0-9.0)
[2017-05-08] MEDS: SODIUM CHLORIDE 0.9% IVPB SCH (19:02)
[2017-05-08] MEDS: VINCRISTINE SULFATE IVPB SCH (19:02)
[2017-05-08] MEDS: DOXORUBICIN IVPB SCH (19:02)
[2017-05-08 19:04] LABS: Bacteria/HPF None Seen HPF (None Seen); Hyaline Casts/LPF 0-3 HYALINE CAST LPF (0-3 Hyaline); RBC/HPF None Seen HPF (0-3); Squamous Epithelial None Seen HPF (0-3); WBC/HPF None Seen HPF (0-3)
[2017-05-08] MEDS ORDERED: Ipratropium Bromide 0.03% Nasal Inhaler 30 ml Bottle EA NARE SCH (21:00)
[2017-05-08] MEDS ORDERED: Sodium Chloride 0.9% 100 ML ONE (22:31)
[2017-05-09] MEDS ORDERED: predniSONE 50 MG TAB PO SCH (08:00)
[2017-05-09] MEDS: valACYclovir 500 MG TAB PO SCH (08:07)
[2017-05-09] MEDS: predniSONE 50 MG TAB PO SCH (08:07)
--- NOTE | 2017-05-09 08:10 | PDOC.PN ---
- Subjective Encounter Start Date: 05/09/17 Encounter Start Time: 08:00 Subjective: f/u chemotherapy for diffuse large B-cell lymphoma. Receiving 5 day course -: inpatient. Currently on Bactrim and Valtrex prophylaxis. No current -: complaints, tolerating chemo. - Objective Resuscitation Status: Resuscitation Status FULL:Full Resuscitation MAR Reviewed: Yes Vital Signs & Weight: Vital Signs (12 hours) Temp Pulse Resp BP BP Pulse Ox 05/09/17 07:25 97.4 F L 83 14 105/56 L 96 05/09/17 03:33 97.3 F L 90 16 119/61 97 05/08/17 23:19 98.3 F 98 16 126/60 99 Weight Weight 158 lb I&O: 05/08/17 05/09/17 05/10/17 06:59 06:59 06:59 Intake Total 2125.75 Balance 2125.75 Result Diagrams: 05/08/17 11:01 05/08/17 11:01 Phys Exam - Physical Examination Constitutional: NAD HEENT: PERRLA, oral pharynx no lesions Neck: no JVD, supple Respiratory: no wheezing, clear to auscultation bilateral Cardiovascular: RRR Gastrointestinal: soft, non-tender, no distention, positive bowel sounds Musculoskeletal: no edema, pulses present Neurological: normal sensation, moves all 4 limbs Psychiatric: A&O x 3 Skin: normal turgor, cap refill <2 seconds Dx/Plan (1) B-cell lymphoma Code(s): C85.10 - UNSPECIFIED B-CELL LYMPHOMA, UNSPECIFIED SITE Status: Acute Qualifiers: B-cell lymphoma type: diffuse large B-cell Comment: Currently on Day #2 of 5 chemotx, continue per protocol, no neutropenia currently (2) GERD (gastroesophageal reflux disease) Code(s): K21.9 - GASTRO-ESOPHAGEAL REFLUX DISEASE WITHOUT ESOPHAGITIS Status: Chronic Comment: Protonix 40mg po daily (3) Anxiety Code(s): F41.9 - ANXIETY DISORDER, UNSPECIFIED Status: Chronic Comment: Continue Xanax prn (4) Chronic anemia Code(s): D64.9 - ANEMIA, UNSPECIFIED Status: Chronic Comment: Serial H/H monitoring, no active blood loss - Plan continue antibiotics, out of bed/ambulate, DVT proph w/SCDs Stable currently -: Continue Chemo per med oncology recommendations -: Prophylaxis with Bactrim and Valtrex -: Continue Prednisone 100mg daily -: AM lab: BMP, CBC * .
[2017-05-09] MEDS: Ipratropium Bromide 0.03% Nasal Inhaler 30 ml Bottle EA NARE SCH ×2 (08:11→21:01)
[2017-05-09] MEDS: FLUTICASONE EA NARE SCH (08:11)
[2017-05-09] MEDS: AZELASTINE EA NARE SCH (08:11)
[2017-05-09] MEDS ORDERED: Sulfameth/Trimethoprim DS 800-160mg TAB PO SCH (09:00)
[2017-05-09] MEDS ORDERED: Fluticasone Propionate Nasal Spray 16 gm Bottle NASAL SCH (09:00)
[2017-05-09] MEDS ORDERED: VALACYCLOVIR HCL 500 MG PO SCH (09:00)
--- NOTE | 2017-05-09 14:16 | CON ---
DATE OF CONSULTATION: 05/09/2017 REASON FOR CONSULTATION: Diffuse large B-cell lymphoma. HISTORY OF PRESENT ILLNESS: Mr. Curran is a very pleasant 37-year-old male, who is underg oing treatment for diffuse large B-cell lymphoma. He is admitted for cycle 6 of EPOCH-R. He has don e well with the previous treatments; however, this past cycle, he became severely neutropenic and req uired Neupogen support. He did receive the Neulasta kit, but it is believed to have malfunctioned. On the day of admission, his white count was 8.4 with an ANC of 6.5. He denies any complaints except for fatigue. No shortness of breath or chest pain. He is also under the care of Denise Yusuf. Pl an is a PET scan after we complete this sixth cycle. PAST MEDICAL HISTORY: 1. Diffuse large B-cell lymphoma. 2. Anxiety and depression. PAST SURGICAL HISTORY: 1. Left hand fracture repair. 2. PICC line placement. ALLERGIES: No known drug allergies. HOME MEDICATIONS: 1. Azelastine nasal spray daily. 2. Flonase daily. 3. Hydroxyzine 25 mg q.i.d. 4. Zofran p.r.n. 5. Protonix 40 mg daily. 6. Bactrim DS Monday, Monday, and Monday. 7. Valacyclovir 500 mg daily. FAMILY HISTORY: His mother had breast cancer. SOCIAL HISTORY: , lives with his . No tobacco, alcohol, or illicit drug use. REVIEW OF SYSTEMS: Ten-point review of systems is negative except for noted in HPI. PHYSICAL EXAMINATION: VITAL SIGNS: Temperature is 98.0, pulse is 85, respiratory rate 14, BP is 107/57, he is 96% on room air. GENERAL: Well-developed, well-nourished male, in no acute distress. HEENT: Normocephalic, atraumatic. Pupils equal and reactive to light. He has alopecia. NECK: Supple. CARDIOVASCULAR: Regular rate and rhythm. LUNGS: Clear. ABDOMEN: Soft, nontender, bowel sounds are positive. EXTREMITIES: No clubbing, cyanosis, or edema. SKIN: No rash. HEMATOLOGIC: No petechiae or purpura. NEUROLOGIC: Nonfocal. PSYCHIATRIC: The patient is alert and oriented and appropriate. PERTINENT LABORATORY AND X-RAYS: Current WBCs are 8.3, hemoglobin 9.6, hematocrit 28.2, platelet cou nt is 225,000. He has got 30% neutrophils, 22% bands, 11% lymphocytes, 16% monocytes. Sodium is 141 , potassium 3.7, chloride 108, CO2 is 25, BUN is 22, creatinine 1.08, calcium 9.2, total bilirubin is 0.2, AST is 22, AST is 32, alkaline phosphatase 69. Serum total protein 5.6, albumin 3.9, globulin 1.7. Urine is negative for bacteria. IMPRESSION: Diffuse large B-cell lymphoma. PLAN: The patient will have cycle 6 of EPOCH-R chemotherapy. This chemotherapy lasts 5 days. He wi ll receive Neulasta kit prior to discharge and follow up in our clinic next week. Thank you for the consult.
[2017-05-09] MEDS: SODIUM CHLORIDE 0.9% IVPB SCH (17:02)
[2017-05-09] MEDS: DOXORUBICIN IVPB SCH (17:02)
[2017-05-09] MEDS: VINCRISTINE SULFATE IVPB SCH (17:02)
[2017-05-10 06:25] LABS: Anion Gap 13 mmol/L (10-20); BUN (Urea Nitrogen) 21 mg/dL (8.9-20.6); Calc. Creatinine Clearance 101 mL/min (70-130); Calcium 8.9 mg/dL (7.8-10.44); Carbon Dioxide 23 mmol/L (22-29); Chloride 108 mmol/L (98-107); Estimated GFR-MDRD 82; Glucose 93 mg/dL (70-105); Potassium 3.5 mmol/L (3.5-5.1); Sodium 140 mmol/L (136-145)
[2017-05-10 07:37] LABS: Band 13 % (5-11); Eosinophils 1 % (0-10); Hemoglobin 9.6 g/dL (14.0-18.0); Lymphocytes 13 % (21-51); MDiff Complete? YES; Mean Corpuscular HGB CONC 32.5 g/dL (32.0-36.0); Mean Corpuscular Hemoglobin 30.6 pg (27.0-31.0); Mean Platelet Volume 8.4 fL (7.4-10.4); Metamyelocyte 1 % (0-0); Monocytes 16 % (0-10); Neutrophil 55 % (42-75); Ovalocytes SLIGHT = 2-5 cells (100X) (0-1/hpf); PLT Morphology Comment Appears Adequate; Platelet Count 210 thou/uL (130-400); Polychromasia SLIGHT = 2-3 cells (100X) (0-2/hpf); RBC Distribution Width 14.9 % (11.5-14.5); Reactive Lymphocytes 1 % (0-10); Red Blood Cell (RBC) Count 3.15 mill/uL (4.70-6.10); White Blood Cell (WBC) Count 6.6 thou/uL (4.8-10.8)
--- NOTE | 2017-05-10 08:28 | PDOC.PN ---
- Subjective Encounter Start Date: 05/10/17 Encounter Start Time: 08:20 Subjective: f/u for Diffuse Large B-cell lymphoma on Cycle 6 of chemotherapy. No new -: complaints and no fever documented. No n/v or rash. - Objective Resuscitation Status: Resuscitation Status FULL:Full Resuscitation MAR Reviewed: Yes Vital Signs & Weight: Vital Signs (12 hours) Temp Pulse Resp BP BP Pulse Ox 05/10/17 07:10 97.3 F L 72 12 109/55 L 98 05/10/17 04:02 98.3 F 54 L 16 115/64 98 05/09/17 23:51 97.5 F L 65 16 125/72 100 Weight Weight 158 lb I&O: 05/09/17 05/10/17 05/11/17 06:59 06:59 06:59 Intake Total 2125.75 1280 Balance 2125.75 1280 Result Diagrams: 05/10/17 05:53 05/10/17 05:53 Additional Labs: Laboratory Tests 05/08/17 05/10/17 11:01 05:53 Hgb 9.6 L Neutrophils % (Manual) 30 L 55 Band Neuts % (Manual) 22 H 13 H Phys Exam - Physical Examination Constitutional: NAD HEENT: PERRLA, oral pharynx no lesions Neck: no JVD, supple Respiratory: no wheezing, clear to auscultation bilateral Cardiovascular: RRR Gastrointestinal: soft, non-tender, no distention, positive bowel sounds Musculoskeletal: no edema, pulses present Neurological: normal sensation, moves all 4 limbs Psychiatric: A&O x 3 Skin: normal turgor, cap refill <2 seconds Dx/Plan (1) B-cell lymphoma Code(s): C85.10 - UNSPECIFIED B-CELL LYMPHOMA, UNSPECIFIED SITE Status: Acute Qualifiers: B-cell lymphoma type: diffuse large B-cell Comment: Currently on Day #3 of 5 chemotx, continue per protocol, no neutropenia currently (2) GERD (gastroesophageal reflux disease) Code(s): K21.9 - GASTRO-ESOPHAGEAL REFLUX DISEASE WITHOUT ESOPHAGITIS Status: Chronic Comment: Protonix 40mg po daily (3) Anxiety Code(s): F41.9 - ANXIETY DISORDER, UNSPECIFIED Status: Chronic Comment: Continue Xanax prn (4) Chronic anemia Code(s): D64.9 - ANEMIA, UNSPECIFIED Status: Chronic Comment: Serial H/H monitoring, no active blood loss - Plan out of bed/ambulate, DVT proph w/SCDs Stable currently -: Continue chemotherapy per oncology -: Continue Bactrim DS M/W/F -: Continue Valtrex -: AM lab: CBC * .
[2017-05-10] MEDS: predniSONE 50 MG TAB PO SCH (08:30)
[2017-05-10] MEDS: AZELASTINE EA NARE SCH (08:30)
[2017-05-10] MEDS: valACYclovir 500 MG TAB PO SCH (08:30)
[2017-05-10] MEDS: FLUTICASONE EA NARE SCH (08:30)
[2017-05-10] MEDS: Ipratropium Bromide 0.03% Nasal Inhaler 30 ml Bottle EA NARE SCH ×2 (08:30→20:23)
[2017-05-10] MEDS: Sulfameth/Trimethoprim DS 800-160mg TAB PO SCH (08:30)
[2017-05-10] MEDS: SODIUM CHLORIDE 0.9% IVPB SCH (14:52)
[2017-05-10] MEDS: DOXORUBICIN IVPB SCH (14:52)
[2017-05-10] MEDS: VINCRISTINE SULFATE IVPB SCH (14:52)
[2017-05-11 04:59] LABS: Band 6 % (5-11); Hemoglobin 10.3 g/dL (14.0-18.0); Lymphocytes 7 % (21-51); MDiff Complete? YES; Mean Corpuscular HGB CONC 33.2 g/dL (32.0-36.0); Mean Corpuscular Hemoglobin 30.9 pg (27.0-31.0); Mean Corpuscular Volume 93.1 fl (80.0-94.0); Mean Platelet Volume 8.1 fL (7.4-10.4); Monocytes 9 % (0-10); Neutrophil 78 % (42-75); PLT Morphology Comment Appears Adequate; Platelet Count 266 thou/uL (130-400); RBC Distribution Width 14.5 % (11.5-14.5); RBC Morphology Normal; Red Blood Cell (RBC) Count 3.33 mill/uL (4.70-6.10); White Blood Cell (WBC) Count 7.2 thou/uL (4.8-10.8)
[2017-05-11] MEDS: valACYclovir 500 MG TAB PO SCH (11:12)
[2017-05-11] MEDS: predniSONE 50 MG TAB PO SCH (11:13)
[2017-05-11] MEDS: AZELASTINE EA NARE SCH (11:15)
[2017-05-11] MEDS: FLUTICASONE EA NARE SCH (11:15)
[2017-05-11] MEDS: Ipratropium Bromide 0.03% Nasal Inhaler 30 ml Bottle EA NARE SCH ×2 (11:16→20:40)
[2017-05-11] MEDS: SODIUM CHLORIDE 0.9% IVPB SCH (15:34)
[2017-05-11] MEDS: VINCRISTINE SULFATE IVPB SCH (15:34)
[2017-05-11] MEDS: DOXORUBICIN IVPB SCH (15:34)
--- NOTE | 2017-05-11 20:09 | PDOC.PN ---
- Subjective Encounter Start Date: 05/11/17 Encounter Start Time: 20:00 Subjective: f/u for diffuse large B-cell lymphoma on current chemotherapy. Currently -: tolerating regimen on Cycle 6. - Objective Resuscitation Status: Resuscitation Status FULL:Full Resuscitation MAR Reviewed: Yes Vital Signs & Weight: Vital Signs (12 hours) Temp Pulse Resp BP Pulse Ox 05/11/17 15:44 97.7 F 80 16 134/65 98 05/11/17 12:00 97.4 F L 64 16 126/77 97 Weight Weight 158 lb I&O: 05/10/17 05/11/17 05/12/17 06:59 06:59 06:59 Intake Total 1280 1370 1560 Balance 1280 1370 1560 Result Diagrams: 05/11/17 04:07 05/10/17 05:53 Phys Exam - Physical Examination Constitutional: NAD HEENT: PERRLA, oral pharynx no lesions Neck: no nodes, no JVD, supple Respiratory: no wheezing, clear to auscultation bilateral Cardiovascular: RRR Gastrointestinal: soft, non-tender, no distention, positive bowel sounds Musculoskeletal: no edema, pulses present Neurological: normal sensation, moves all 4 limbs Psychiatric: A&O x 3 Skin: normal turgor, cap refill <2 seconds Dx/Plan (1) B-cell lymphoma Code(s): C85.10 - UNSPECIFIED B-CELL LYMPHOMA, UNSPECIFIED SITE Status: Acute Qualifiers: B-cell lymphoma type: diffuse large B-cell Comment: Currently on Day #4 of 5 chemotx, continue per protocol, no neutropenia currently (2) GERD (gastroesophageal reflux disease) Code(s): K21.9 - GASTRO-ESOPHAGEAL REFLUX DISEASE WITHOUT ESOPHAGITIS Status: Chronic Comment: Protonix 40mg po daily (3) Anxiety Code(s): F41.9 - ANXIETY DISORDER, UNSPECIFIED Status: Chronic Comment: Continue Xanax prn (4) Chronic anemia Code(s): D64.9 - ANEMIA, UNSPECIFIED Status: Chronic Comment: Serial H/H monitoring, no active blood loss - Plan psychosocial rehabilitation counselor, out of bed/ambulate, DVT proph w/SCDs Stable overall -: Continue chemotherapy with Day #5 planned in am -: Continue Bactrim DS M/W/F -: Continue Prednisone 100mg qam -: Likely home in 24h after completing chemotx * .
[2017-05-12] MEDS ORDERED: CYCLOPHOSPHAMIDE IVPB SCH (09:00)
[2017-05-12] MEDS ORDERED: SODIUM CHLORIDE 0.9% IVPB SCH (09:00)
[2017-05-12] MEDS ORDERED: PALONOSETRON HCL 0.05 MG/ML 5 ML VIAL IVP SCH (09:00)
[2017-05-12] MEDS: valACYclovir 500 MG TAB PO SCH (11:10)
[2017-05-12] MEDS: Sulfameth/Trimethoprim DS 800-160mg TAB PO SCH (11:10)
[2017-05-12] MEDS: predniSONE 50 MG TAB PO SCH (11:11)
[2017-05-12] MEDS: Ipratropium Bromide 0.03% Nasal Inhaler 30 ml Bottle EA NARE SCH (11:13)
[2017-05-12] MEDS: FLUTICASONE EA NARE SCH (11:13)
[2017-05-12] MEDS: AZELASTINE EA NARE SCH (11:13)
[2017-05-12 16:11] VITALS: BP 101/58; TEMP 97.8
--- NOTE | 2017-05-12 22:33 | DIS ---
DATE OF ADMISSION: 05/08/2017 DATE OF DISCHARGE: 05/12/2017 DISCHARGE DIAGNOSES: 1. Diffuse large B-cell lymphoma, completing cycle 6 of chemotherapy. 2. Chronic anemia secondary to chemotherapy. 3. Gastroesophageal reflux, stable. 4. Anxiety disorder. CONSULTATION: Dr. Mclean with Medical Oncology Service. PERTINENT LABORATORY AND X-RAY FINDINGS: Basic metabolic profile within normal limits. CBC showed a hemoglobin ranging between 9.6 to 10.3, MCV 93-94, platelet count ranged between 210 to 266, white b lood cell count ranging between 6.6 to 8.3. HOSPITAL COURSE: The patient was admitted to the Oncology Unit after presenting for cycle 6 of chemo therapy for diffuse large B-cell lymphoma. The patient underwent chemotherapy with doxorubicin, vinc ristine, etoposide, and prednisone. The patient also received Aloxi and Cytoxan. The patient was al so given Neulasta at the direction of Oncology Service and tolerated the regimen without difficulty. The patient remained clinically stable throughout the hospital course and ready for discharge on . The patient will have a right upper extremity PICC line removed prior to discharge. DISCHARGE MEDICATIONS: 1. Alprazolam 0.25 mg p.o. daily p.r.n. 2. Azelastine 137 mcg, 1-2 sprays in each naris daily. 3. Flonase nasal spray, 2 sprays in each naris daily. 4. Ipratropium bromide 0.03% nasal spray, 2 sprays in each naris b.i.d. 5. Protonix 40 mg 1 tab p.o. daily. 6. Bactrim DS 800/160 mg 1 tab p.o. daily. 7. Valacyclovir 500 mg p.o. daily. FOLLOWUP: The patient will follow up with Dr. Mclean in the Cancer Clinic on 05/15/2017. The patie nt may also followup with his primary care provider, Dr. Darrius Nichole, within 7 days of discharge. CONDITION ON DISCHARGE: Stable. ACTIVITY: Ad tree. DIET: Regular. CODE STATUS: Full. DISPOSITION: Home, 05/12/2017.
[2017-05-13] MEDS ORDERED: Pegfilgrastim 6 MG/0.6 ML Delivery Kit SQ SCH (09:00)
== END 2017-05-12 17:06 | disposition home or self-care (01) | DRG 847 ==
LOC: ONC 09:53
PROVIDERS: ADMIT Internal Medicine; ATTEND Internal Medicine
PROC: 3E03305 Introduction of Other Antineoplastic into Peripheral Vein, Percutaneous Approach (ICD-10-PCS; principal; 2017-05-09)
PROC: 3E0333Z Introduction of Anti-inflammatory into Peripheral Vein, Percutaneous Approach (ICD-10-PCS; 2017-05-09)
DX: Z51.11 Encounter for antineoplastic chemotherapy (principal); C83.30 Diffuse large B-cell lymphoma, unspecified site; Z92.21 Personal history of antineoplastic chemotherapy; J30.9 Allergic rhinitis, unspecified; K21.9 Gastro-esophageal reflux disease without esophagitis; F41.9 Anxiety disorder, unspecified; D63.8 Anemia in other chronic diseases classified elsewhere; D64.81 Anemia due to antineoplastic chemotherapy; Z95.828 Presence of other vascular implants and grafts
CPT/HCPCS: 80048; 80053; 81001; 85007; 85025; 85027; A4216; J1100; J1200; J1642; J2469; J7050; J9070; J9181; J9310; J9370; Q2050; S0028

== ENCOUNTER 2018-08-15 12:24 | Outpatient (CLI) | payer BC ==
--- NOTE | 2018-08-15 12:45 | RAD ---
2 views chest. HISTORY: 38-year-old with history of B-cell lymphoma and neutropenia. PA and lateral views of the chest is obtained on 08/15/2018. Comparison made to previous exam from 01/21. 2 views chest demonstrates elevated right hemidiaphragm. The lungs are well aerated. No evidence of a ctive intrathoracic disease seen. No evidence of effusions, pneumonia or pneumothorax seen. IMPRESSION: Elevated right hemidiaphragm otherwise unremarkable 2 views chest.
== END 2018-08-15 12:25 | disposition home or self-care (01) ==
LOC: BICRAD 12:24
PROVIDERS: ATTEND Internal Medicine Hematology & Oncology
DX: C83.32 Diffuse large B-cell lymphoma, intrathoracic lymph nodes (principal); Q79.1 Other congenital malformations of diaphragm
CPT/HCPCS: 71046

== ENCOUNTER 2018-12-19 08:43 | Outpatient (CLI) | payer BC ==
--- NOTE | 2018-12-19 09:07 | RAD ---
EXAM: Chest 2 views: HISTORY: Diffuse large cell lymphoma COMPARISON: 08/15/2018 FINDINGS: There is a normal-sized cardiomediastinal silhouette. There is no evidence of consolidation, mass, or pleural effusion. The bones are unremarkable. IMPRESSION: No evidence of acute cardiopulmonary disease
== END 2018-12-19 08:44 | disposition home or self-care (01) ==
LOC: BICRAD 08:43
PROVIDERS: ATTEND Internal Medicine Hematology & Oncology
DX: C83.32 Diffuse large B-cell lymphoma, intrathoracic lymph nodes (principal)
CPT/HCPCS: 71046

== ENCOUNTER 2019-05-17 11:16 | Outpatient (CLI) | payer BC ==
--- NOTE | 2019-05-17 13:58 | CT ---
CT OF CHEST PERFORMED WITH INTRAVENOUS CONTRAST ENHANCEMENT: HISTORY: Diffuse large B-cell lymphoma. COMPARISON: A CT angio of chest dated 03/27/2017. FINDINGS: The lungs are clear of any infiltrative process. There are no pulmonary nodules or pleural effusions identified. No significant axillary adenopathy. The partially calcified anterior mediastinal mass is seen. The size of this has definitely decreased as compared to the previous examination. The best comparison m easurements would be a transverse measurement of 4.8 cm and a maximum AP measurement of 4.0 cm on angelic zelaya's study as compared to 5.7 x 7.9 cm with more distinctive calcification seen within the anterior m ediastinal lesion. There is no other mediastinal adenopathy noted. The visualized liver parenchyma shows no focal findings. The spleen is within normal limits. Pancre as region is unremarkable. A left renal cyst is noted. IMPRESSION: Interval decrease in size and increase in calcification of the anterior mediastinal soft tissue mass density as described above. POS: LALY
[2019-05-17] MEDS ORDERED: Iopamidol-370 76% 500 ML 1 ML ONE (14:29)
== END 2019-05-17 11:17 | disposition home or self-care (01) ==
LOC: BICCT 11:16
PROVIDERS: ATTEND Internal Medicine Hematology & Oncology
DX: C83.32 Diffuse large B-cell lymphoma, intrathoracic lymph nodes (principal); J98.59 Other diseases of mediastinum, not elsewhere classified
CPT/HCPCS: 71260

== ENCOUNTER 2019-12-18 11:47 | Outpatient (CLI) | payer BC ==
--- NOTE | 2019-12-18 13:17 | RAD ---
PA AND LATERAL VIEWS CHEST: HISTORY: Diffuse large B-cell lymphoma, intrathoracic. COMPARISON: 12/19/2018. FINDINGS: There is continued elevation of the right hemidiaphragm. The heart size is normal. The lungs are ex panded without lobar consolidation, pneumothoraces, or pleural effusions. IMPRESSION: Stable exam. No acute process. POS: OFF
== END 2019-12-18 11:48 | disposition home or self-care (01) ==
LOC: BICRAD 11:47
PROVIDERS: ATTEND Internal Medicine Hematology & Oncology
DX: C83.32 Diffuse large B-cell lymphoma, intrathoracic lymph nodes (principal); D70.8 Other neutropenia
CPT/HCPCS: 36415; 71046; 80053; 82248; 83615; 84100; 84550

== ENCOUNTER 2020-06-12 09:58 | Outpatient (CLI) | payer BC ==
[2020-06-12] MEDS ORDERED: Iopamidol-370 76% 500 ML 1 ML ONE (11:51)
--- NOTE | 2020-06-12 14:09 | CT ---
CT OF THE CHEST WITH IV CONTRAST INDICATION: Lymphoma COMPARISON: CT the thorax with contrast dated May 17, 2019 FINDINGS: CHEST: Lungs: The lungs are clear. Pleural space: No effusion. Mediastinum: The partially calcified lobulated hypodense soft tissue mass within the anterior mediast inum measures 4.8 x 3.9 cm in its greatest axial dimension, stable to the prior exam. The lesion measures 6.3 cm in its greatest craniocaudad dimension, stable to the prior exam. Soft tissue ossific ations seen along the anterior mediastinum, AP window and left hilar region are stable. Upper abdomen:No acute abnormality. Stable left renal cyst. Osseous structures: No acute osseous abnormality. No destructive osteolytic or osteoblastic lesion i s identified. Stable slight rightward curvature of the upper thoracic spine. Soft tissues:Normal. IMPRESSION: 1. Stable partially calcified anterior mediastinal mass. No evidence of worsening intrathoracic disea se. 2. Stable left renal cyst.
== END 2020-06-12 09:59 | disposition home or self-care (01) ==
LOC: BICCT 09:58
PROVIDERS: ATTEND Internal Medicine Hematology & Oncology
DX: C83.32 Diffuse large B-cell lymphoma, intrathoracic lymph nodes (principal); R22.2 Localized swelling, mass and lump, trunk; N28.1 Cyst of kidney, acquired
CPT/HCPCS: 71260; Q9967

== ENCOUNTER 2020-09-21 08:24 | Outpatient (CLI) | payer BC | END 2020-09-21 08:25 | disposition home or self-care (01) | LOC: BICULT 08:24 | PROVIDERS: ATTEND Internal Medicine | DX: R94.4 Abnormal results of kidney function studies (principal); N28.1 Cyst of kidney, acquired | CPT/HCPCS: 93975 ==